=== PATIENT | male | born 1950 | race Caucasian/White ===

== ENCOUNTER 2018-06-14 18:18 | Inpatient (IN) | payer MEDICARE, OTHER ==
[~2018-06-14] VITALS: Ht 177.8 cm; Wt 107.8 kg
[2018-06-14 18:57] LABS: BASO % 0.2 % (0.0-1.0); EOS # 0.2 10^3/uL (0.0-0.50); EOS % 2.1 % (0.0-3.0); HEMATOCRIT 30.6 % (42.0-52.0); HEMOGLOBIN 8.7 g/dl (13.5-17.5); LYMPH # 0.4 10^3/uL (1.5-4.5); LYMPH % 5.2 % (24.0-44.0); MEAN CORPUSCULAR HEMOGLOBIN 23.8 pg (27.0-33.0); MEAN CORPUSCULAR HGB CONC 28.4 g/dl (32.0-36.5); MEAN CORPUSCULAR VOLUME 83.8 fl (80.0-96.0); MONO # 0.8 10^3/uL (0.0-0.8); MONO % 10.2 % (0.0-5.0); NEUTROPHILS # 6.8 10^3/uL (1.8-7.7); NEUTROPHILS % 81.9 % (36.0-66.0); PLATELET COUNT, AUTOMATED 266 10^3/uL (150-450); RED BLOOD COUNT 3.65 10^6/uL (4.30-6.10); WHITE BLOOD COUNT 8.3 10^3/uL (4.0-10.0)
[2018-06-14] MEDS ORDERED: METO1TAB87 PO (19:09)
[2018-06-14] MEDS ORDERED: FURO40TA2 PO (19:09)
[2018-06-14] MEDS ORDERED: CLOP75TA2 PO (19:09)
[2018-06-14] MEDS ORDERED: TRAZ-160 PO (19:09)
[2018-06-14] MEDS ORDERED: GLIP10TA6 PO (19:09)
[2018-06-14] MEDS ORDERED: ZYLO300T6 PO (19:09)
[2018-06-14] MEDS ORDERED: ROSU40TA3 PO (19:09)
[2018-06-14] MEDS ORDERED: BUPR150T3 PO (19:09)
[2018-06-14] MEDS ORDERED: GABA-843 PO (19:09)
[2018-06-14] MEDS ORDERED: BASA100I SC ×2 (19:09→20:08)
[2018-06-14] MEDS ORDERED: SPIR-10 PO (19:09)
[2018-06-14] MEDS ORDERED: LOSA100T50 PO (19:09)
[2018-06-14] MEDS ORDERED: OMEP40CA2 PO (19:09)
[2018-06-14 19:14] LABS: INR 1.18; PROTHROMBIN TIME 15.2 SECONDS (12.1-14.4)
[2018-06-14 19:26] LABS: ALBUMIN 3.7 GM/DL (3.2-5.2); BILIRUBIN,DIRECT 0.2 MG/DL (0.0-0.2); BILIRUBIN,TOTAL 0.4 MG/DL (0.2-1.0); CALCIUM LEVEL 7.7 MG/DL (8.8-10.2); CREATININE FOR GFR 1.77 MG/DL (0.70-1.30); GLOMERULAR FILTRATION RATE 40.8 (>49); MB/CK RELATIVE INDEX 2.41 (< OR =4); POTASSIUM SERUM 4.5 MEQ/L (3.5-5.1); THYROID STIMULATING HORMONE 3.26 uIU/ML (0.358-3.740); THYROXINE (T4) 7.8 UG/DL (4.5-12.0); TOTAL PROTEIN 6.6 GM/DL (6.4-8.2); TROPONIN I 0.03 NG/ML (< 0.10)
[2018-06-14] MEDS ORDERED: FUROSEMIDE 100 MG/10 ML VIAL (J1940) IV ONE (19:30)
--- NOTE | 2018-06-14 19:31 | REP ---
Portable chest x-ray: Single view: History: Dyspnea and cough. No comparison study. Findings: The patient is status post prior median sternotomy. There appears to be an aortic valve replacement. There is a screw plate fixation device in the right clavicle. EKG electrodes are seen. Mildly prominent heart is noted. No infiltrate is seen. There is no evidence of pleural effusion or pulmonary edema. Pulmonary vasculature is cephalized. Impression: Cardiomegaly. Prior sternotomy and what appears to be aortic valve replacement. Pulmonary vascular cephalization. No evidence of infiltrate, pleural effusion, or pulmonary edema. Electronically Signed by Magno Roberts MD 06/14/2018 07:34 P
[2018-06-14] MEDS ORDERED: NEUR300C PO (20:07)
[2018-06-14] MEDS ORDERED: GLIP10TA18 PO (20:07)
[2018-06-14] MEDS ORDERED: HALO0.052 TOP (20:10)
[2018-06-14] MEDS ORDERED: FOLI1TAB11 PO (20:10)
[2018-06-14] MEDS: FOLIC ACID 1 MG TAB PO SCH (21:00)
[2018-06-14] MEDS ORDERED: GLUCAGON FOR INJ 1 MG VIAL (J1610) SC PRN (22:30)
[2018-06-14] MEDS ORDERED: GLUCOSE 4 GM CHEW TABLET PO PRN (22:30)
[2018-06-14] MEDS ORDERED: DEXTROSE 50% 50 ML SYRINGE IV PRN (22:30)
[2018-06-14] MEDS ORDERED: DOCUSATE SODIUM 100 MG CAP PO PRN (22:45)
[2018-06-14] MEDS: LEVEMIR (INSULIN DETEMIR) 1 UNITS/0.01ML SC SCH (23:30)
--- NOTE | 2018-06-14 23:57 | HPE ---
DATE OF ADMISSION: 06/14/2018 CHIEF COMPLAINT: Worsening dyspnea on exertion. HISTORY OF THE PRESENT ILLNESS: The patient is a 67-year-old male with significant past medical history of systolic congestive heart failure (CHF), coronary artery disease status post coronary artery bypass graft (CABG) times three, aortic valve repair, gout, diabetes with neuropathy. He presents to the emergency room with worsening dyspnea on exertion, decreased exercise tolerance, worsening lower extremity edema and orthopnea. He has been having these symptoms for the past 3-4 days. The patient states that he was taken off his diuretics by his canoe maker, Dr. Guerra, about 3 weeks ago because of worsening renal function. He was subsequently started back at a lower dose when he became fluid overloaded. He states that he was on 40 twice a day, then subsequently was on 40, 20 interchangeably on different days. He states he continued to become progressively dyspneic on exertion, unable to walk a few feet before he is short of breath. He denied any chest pain. He denied any abdominal pain. He has chronic constipation. He denies any urinary symptoms. The patient states he recently had an echocardiogram with Dr. Guerra, which illustrated that his ejection fraction (EF) had decreased to around 19%. He was being told about possible automatic implantable cardioverter defibrillator (AICD), as well as cardiac catheterization. However, it was found t hat he was anemic, and he is currently in the process of getting worked up. He sent in his stool for occult blood. His hemoglobin today is 8.7. PAST MEDICAL HISTORY: See history of the present illness. PAST SURGICAL HISTORY: He has had shoulder surgery, parotid tumor removal, hernia repair, CABG, and aortic valve replacement. HOME MEDICATIONS: Include: - Lasix 40 mg - glipizide - allopurinol - Basaglar - bupropion - Plavix - folic acid - gabapentin - metoprolol - omeprazole - Crestor - spironolactone - trazodone SOCIAL HISTORY: He is a former smoker. Denies alcohol or illicit drug use. FAMILY HISTORY: Heart disease. REVIEW OF SYSTEMS: A 12-point review of systems was completed, all of which were negative except those listed in the history of the present illness. VITAL SIGNS ON ADMISSION: Temperature 97, pulse of 75, respirations are 28, saturating at 93% on room air. Blood pressure 133/56. PHYSICAL EXAM: General: He is well nourished, in no apparent distress. Head is normocephalic, atraumatic Eyes: Extraocular movements are intact. Pupils equal, round, reactive to light. Neck is supple. No jugular venous pressure (JVP). Lungs: Clear to auscultation. No crackles, wheezes, rales, or rhonchi. Cardiovascular: Regular rate and rhythm. Normal S1, S2. No murmurs, gallops, or rubs. Abdomen: Soft, nontender, nondistended. Positive bowel sounds. No rebound, no guarding. Extremities: 2+ pitting edema. No calf tenderness. Skin: Intact. No rashes, lesions, or breakdown. Neurological: Alert and oriented times three. No focal deficits. LABS AND IMAGING: Done in the ER. WBC of 8.3, hemoglobin and hematocrit of 8.7 over 30, MCV of 83, platelets of 266. Baseline hemoglobin unknown. Coagulation studies (coags): INR 1.18. Chemistry shows a BUN and creatinine of 36 over 1.77, baseline unknown. BNP of 5000. Troponins are negative. Potassium of 4.5. Chest x-ray shows cardiomegaly, pulmonary vascular cephalization. ASSESSMENT AND PLAN: Acute on chronic systolic congestive heart failure secondary to possibly medication noncompliance changes but would rule out acute coronary syndrome (ACS) with serial troponins, serial EKGs. Will get an echo. Will send a TSH. Will diurese with Lasix 40 mg twice a day for now and pay close attention to the renal function. Strict intake and output, daily weights, elevate the head of the bed, oxygen as needed. For his normocytic anemia, will send stool for occult blood. Will send iron panel, folate and B12. For his worsening renal function, as per the patient, unknown what his baseline creatinine is, possibly acute kidney injury (KAILEY) on chronic kidney disease. Will send urine sodium, urine potassium, urine chloride. Will get US renal. Will monitor closely while patient on diuretics. However, at this point in time, he seems to be fluid overloaded. Unclear if this is some sort of cardiorenal syndrome. For gout, continue allopurinol. Coronary artery disease. Status post CABG. Continue Plavix and beta jay. Aortic valve replacement. This appears to be stable. Will get an echocardiogram. Mood disorder. Continue bupropion. Supportive: Deep vein thrombosis (DVT) prophylaxis. Sequential compression devices in the setting of recently discovered anemia. Gastrointestinal (GI) prophylaxis not indicated. Diabetes. Continue his basal bolus insulin as well as Neurontin for neuropathy. Diet: Diabetic, cardiac diet with fluid restriction 1.8 liters per day. MTDD
[2018-06-14] MEDS: METOPROLOL TART 12.5 MG PER 1/2 TAB PO SCH (23:58)
[2018-06-15 06:44] VITALS: BP 149/73
[2018-06-15 07:10] LABS: HEMATOCRIT 28.1 % (42.0-52.0); HEMOGLOBIN 7.9 g/dl (13.5-17.5); MEAN CORPUSCULAR HEMOGLOBIN 23.4 pg (27.0-33.0); MEAN CORPUSCULAR HGB CONC 28.1 g/dl (32.0-36.5); MEAN CORPUSCULAR VOLUME 83.4 fl (80.0-96.0); PLATELET COUNT, AUTOMATED 243 10^3/uL (150-450); RED BLOOD COUNT 3.37 10^6/uL (4.30-6.10); WHITE BLOOD COUNT 7.5 10^3/uL (4.0-10.0)
[2018-06-15] MEDS: HumaLOG INSULIN (NovoLOG) PER UNIT SC SCH ×3 (07:30→18:01)
[2018-06-15 08:00] VITALS: BP 148/85
--- NOTE | 2018-06-15 08:32 | REP ---
Urinary tract sonography: History: Worsening creatinine. Renal insufficiency. Findings: Scanning at the level of the urinary bladder shows smooth bladder smith. There is mild diffuse ascites noted in the right and left lower abdomen. Renal cortical echogenicity pattern is increased bilaterally consistent with chronic medical renal disease. There is no evidence of hydronephrosis on either side. There is a cyst in the upper pole of the right kidney measuring 1.8 cm in greatest diameter. A lower pole cyst is seen in the periphery of the right old kidney as well measuring 1.5 cm. No mass lesion is seen on either side. Right renal dimensions are 11.4 x 6.2 x 6.5 cm. Left kidney measures 11.7 x 5.8 x 5.8 cm. Impression: 1. Increased renal cortical echogenicity pattern consistent with chronic medical renal disease. 2. No evidence of hydronephrosis. 3. There are two tiny cortical cysts right kidney. 4. Ascites. Electronically Signed by Magno Roberts MD 06/15/2018 08:23 A
[2018-06-15 09:09] LABS: BLOOD UREA NITROGEN 33 MG/DL (7-18); CARBON DIOXIDE LEVEL 25 MEQ/L (21-32); CHLORIDE LEVEL 110 MEQ/L (98-107); CREATININE FOR GFR 1.62 MG/DL (0.70-1.30); FERRITIN 8 NG/ML (26-388); GLOMERULAR FILTRATION RATE 45.2 (>49); GLUCOSE, FASTING 70 MG/DL (70-100); IRON (FE) 15 UG/DL (65-175); PERCENT SATURATION 3.3 % (19.7-50.0); POTASSIUM SERUM 4.2 MEQ/L (3.5-5.1); SODIUM LEVEL 144 MEQ/L (136-145); TOTAL IRON BINDING CAPACITY 452 UG/DL (250-450); TROPONIN I 0.03 NG/ML (< 0.10)
[2018-06-15] MEDS: buPROPion **XL** TABLET 150MG (WELLBUTRIN XL) PO SCH (09:25)
[2018-06-15] MEDS: ALLOPURINOL 300 MG TAB PO SCH (09:25)
[2018-06-15] MEDS: ROSUVASTATIN 10 MG TAB (CRESTOR) PO SCH (09:25)
[2018-06-15] MEDS: OMEPRAZOLE 20 MG CAP PO SCH ×2 (09:26→21:41)
[2018-06-15] MEDS: SPIRONOLACTONE 12.5MG PER 1/2 TABLET PO SCH (09:26)
[2018-06-15] MEDS: METOPROLOL TART 12.5 MG PER 1/2 TAB PO SCH ×2 (09:26→21:41)
[2018-06-15] MEDS: CLOPIDOGREL 75 MG TAB PO SCH (09:26)
[2018-06-15] MEDS: GABAPENTIN 300 MG CAP PO SCH ×2 (09:26→21:38)
[2018-06-15] MEDS: LEVEMIR (INSULIN DETEMIR) 1 UNITS/0.01ML SC SCH ×2 (09:27→21:42)
[2018-06-15] MEDS: FUROSEMIDE 40 MG/4 ML VIAL (J1940) IV SCH ×2 (09:27→17:09)
[2018-06-15] MEDS ORDERED: SLF 3 ML SYR IV PRN (10:45)
--- NOTE | 2018-06-15 11:41 | ECGEPIP ---
Stationary ECG Study [facility] - ED Test Date: 2018-06-14 Pat Name: DONNA MELCHOR Department: Room: [place] [address] Gender: M Funding Coordinator: gt : 1950 Requested By: Roseanne Guerra Order Number: [id number] Reading MD: Jania Mederos Measurements Intervals [place] Rate: 70 P: 75 VT: 195 QRS: -28 QRSD: 128 T: 98 QT: 411 QTc: 446 Interpretive Statements SINUS RHYTHM LEFT BUNDLE BRANCH BLOCK NO PRIOR FOR COMPARISON Electronically Signed On 06-15-2018 11:41:11 EST by Jania Mederos
[2018-06-15 11:49] LABS: FOLATE > 24.0 NG/ML (>5.4); VITAMIN B12 LEVEL 800 PG/ML (247-911)
[2018-06-15 12:00] VITALS: BP 127/67
[2018-06-15] MEDS ORDERED: HALOBETASOL PROPION 0.05% OINT 15 GM TOP PRN (13:15)
[2018-06-15] MEDS: SLF 3 ML SYR IV SCH ×2 (13:30→21:38)
[2018-06-15 13:46] LABS: HEMATOCRIT 29.2 % (42.0-52.0); HEMOGLOBIN 8.3 g/dl (13.5-17.5)
--- NOTE | 2018-06-15 15:07 | REP ---
CT chest without contrast: History: Volume overload. No comparison chest CT. CT findings: Preliminary digital scout sniper radiograph demonstrates median sternotomy wires. Mitral annular calcification is observed. The patient is status post aortic valve replacement. There are quite small bilateral pleural effusions, right greater than left. No pericardial effusion is seen. Four-chamber cardiomegaly is observed, however. There is minimal upper abdominal ascites visible. There are multiple small mediastinal lymph nodes in the aortopulmonary window region and pretracheal region. The largest of these measures 16 x 17 mm. This is in the pretracheal region. In the aortopulmonary window region, there is a lymph node measuring 11 x 19 mm. No axillary adenopathy is appreciated. There are two or three borderline portocaval lymph nodes in the upper abdomen. There is a cyst in the upper pole of the left kidney. There are one or two epicardial fat lymph nodes. The largest of these measures 9 x 11 mm. There is a 4 mm nodule without calcification in the right lower lobe on page 75 of 103 in series 204 of today's study. There is a second 3 mm noncalcified nodule in the left lower lobe on the same page of today's exam. No other significant pulmonary nodule is seen. No infiltrate is observed. Impression: Cardiomegaly and small bilateral pleural effusions, right larger than left. Status post aortic valve replacement. There are borderline mediastinal and upper abdominal lymph nodes. Mild upper abdominal ascites. There are two small subcentimeter noncalcified pulmonary nodules. Consider follow-up. Electronically Signed by Magno Roberts MD 06/15/2018 03:57 P
--- NOTE | 2018-06-15 15:10 | REP ---
CT abdomen and pelvis without IV or oral contrast: History: Ascites. No comparison CT study. Ascites visible on yesterday's urinary tract sonography. CT findings: There is mild diffuse abdominal ascites along the right pericolic gutter and right flank as well as in the pelvic reflections. There are calcified gallstones in a normal sized gallbladder. No focal hepatic lesion or splenic lesion is seen. Neither of these organs is enlarged. Pancreas is unremarkable. No adrenal lesion is seen. There are bilateral renal cortical cysts including a small hyperdense cyst at the lower pole on the right which measures 1.5 cm. The largest cyst is in the upper pole on the left measuring 3.0 cm. No retroperitoneal mass or adenopathy is observed. There is fairly prominent vascular calcification. Small and large intestinal bowel loops are unremarkable. There is some vas deferens calcification and prostate calcification. Urinary bladder is unremarkable. No abdominal wall defect is seen. No bony destructive lesion is appreciated. Impression: Mild diffuse abdominal ascites. Bilateral renal cysts. Cholelithiasis. Vascular calcification. Electronically Signed by Magno Roberts MD 06/15/2018 03:59 P
--- NOTE | 2018-06-15 16:38 | IPNPDOC ---
Subjective Date Seen The patient was seen on 06/15/18. Subjective Chief Complaint/HPI Patient seen and examined at the bedside. Reports that his respiratory status and lower extremity edema is improving since admission. Objective Physical Examination General Exam: Positive: Alert, Cooperative, No Acute Distress ENT Exam: Positive: Mucous membr. moist/pink Chest Exam: Positive: Rales (faint bibasilar crackles noted auscultation. Limited due to body habitus), Diminished Heart Exam: Positive: Rate Normal, Normal S1, Normal S2 Abdomen Exam: Positive: Soft, Other (slightly distended); Negative: Tenderness Extremity Exam: Positive: Swelling (3+ pitting edema in the lower extremities bilaterally); Negative: Tenderness Psych Exam: Positive: Oriented x 3 Assessment /Plan Plan/VTE VTE Prophylaxis Ordered?: Yes Plan Decompensated Systolic CHF Cont IV Diuretic therapy as ordered Monitor daily weights Monitor input and output We will continue to actively diuresis the patient with IV Lasix and by mouth Aldactone to improve his respiratory status 2-D echocardiogram ordered for follow-up of the patient's underlying systolic/diastolic function Normocytic anemia Stool occult study sent Iron studies noted We will transfuse the patient as indicated for hemoglobin less than 8.0 Possible acute kidney injury versus chronic kidney disease We do not have baseline lab work for the patient His serum creatinine has improved from 1.77 to 1.62 this morning with diuresis Renal ultrasound with no acute findings Outpatient records ordered to be obtained We will continue to monitor Hx of CAD s/p CABG Cont Plavix, BB History of aortic valve replacement We will follow up on echocardiogram ordered here Gout Continue allopurinol Peripheral neuropathy Continue gabapentin Dyslipidemia Continue statin GERD Continue PPI Diabetes mellitus Continue Levemir, insulin sliding scale DVT Prophylaxis SCDs/TEDs VS, I&O, 24H, Fishbone Vital Signs/I&O Vital Signs Date Time Temp Pulse Resp B/P (MAP) Pulse Ox O2 Delivery O2 Flow Rate FiO2 06/15/18 12:00 96.8 88 16 127/67 (87) 99 06/14/18 18:42 Room Air I&O- Last 24 Hours up to 6 AM 06/15/18 06:00 Output Total 1200 ml Balance -1200 ml Laboratory Data 24H LABS Laboratory Tests 2 06/14/18 18:45: Immature Granulocyte % (Auto) 0.4, White Blood Count 8.3, Red Blood Count 3.65L, Hemoglobin 8.7L, Hematocrit 30.6L, Mean Corpuscular Volume 83.8, Mean Corpuscular Hemoglobin 23.8L, Mean Corpuscular Hemoglobin Concent 28.4L, Red Cell Distribution Width 16.4H, Platelet Count 266, Neutrophils (%) (Auto) 81.9H, Lymphocytes (%) (Auto) 5.2L, Monocytes (%) (Auto) 10.2H, Eosinophils (%) (Auto) 2.1, Basophils (%) (Auto) 0.2, Neutrophils # (Auto) 6.8, Lymphocytes # (Auto) 0.4L, Monocytes # (Auto) 0.8, Eosinophils # (Auto) 0.2, Basophils # (Auto) 0.0, Nucleated Red Blood Cells % (auto) 0.0, Prothrombin Time 15.2H, Prothromb Time International Ratio 1.18, Anion Gap 11, Glomerular Filtration Rate 40.8L, Calcium Level 7.7L, Aspartate Amino Transf (AST/SGOT) 17, Alanine Aminotransfer ase (ALT/SGPT) 21, Alkaline Phosphatase 94, Total Bilirubin 0.4, Direct Bilirubin 0.2, Total Creatine Kinase 170, Creatine Kinase MB 4.0H, Creatine Kinase MB Relative Index 2.41, Troponin I 0.03, MS-Vng-F-Type Natriuretic Peptide 5095H, Total Protein 6.6, Albumin 3.7, Albumin/Globulin Ratio 1.28, Th yroid Stimulating Hormone (TSH) 3.260, Thyroxine (T4) 7.8 06/14/18 22:30: Lab Scanned Report LAB OTHER 06/14/18 23:02: Bedside Glucose (Misc Panel) 47L 06/14/18 23:48: Bedside Glucose (Misc Panel) 88 06/15/18 01:21: Troponin I 0.03 06/15/18 05:38: Bedside Glucose (Misc Panel) 86 06/15/18 06:53: Troponin I 0.03, Nucleated Red Blood Cells % (auto) 0.0, Anion Gap 9, Glomerular Filtration Rate 45.2L, Blood Urea Nitrogen 33H, Creatinine 1.62H, Sodium Level 144, Potassium Level 4.2, Chloride Level 110H, Carbon Dioxide Level 25, Calcium Level 8.0L, Iron Level 15L, Total Iron Binding Capacity 452H, Transferrin % Saturation 3.3L, Ferritin 8L, Vitamin B12 Level 800, Folate > 24.0 06/15/18 11:32: Bedside Glucose (Misc Panel) 95 06/15/18 16:27: CBC/BMP Laboratory Tests 06/14/18 18:45 Red Blood Count 3.65 L, Mean Corpuscular Volume 83.8, Mean Corpuscular Hemoglobin 23.8 L, Mean Corpuscular Hemoglobin Concent 28.4 L, Red Cell Distribution Width 16.4 H, Neutrophils (%) (Auto) 81.9 H, Lymphocytes (%) (Auto) 5.2 L, Monocytes (%) (Auto) 10.2 H, Eosinophils (%) (Auto) 2.1, Basophils (%) (Auto) 0.2, Neutrophils # (Auto) 6.8, Lymphocytes # (Auto) 0.4 L, Monocytes # (Auto) 0.8, Eosinophils # (Auto) 0.2, Basophils # (Auto) 0.0 06/15/18 06:53 Red Blood Count 3.37 L, Mean Corpuscular Volume 83.4, Mean Corpuscular Hemoglobin 23.4 L, Mean Corpuscular Hemoglobin Concent 28.1 L, Red Cell Distribution Width 16.5 H, Calcium Level 8.0 L 06/15/18 13:28 NERIS KELLEY MD Jun 15, 2018 16:38
[2018-06-15 16:49] LABS: POTASSIUM RANDOM URINE 35.4 MEQ/L
[2018-06-15 16:52] LABS: APPEARANCE, URINE CLEAR (CLEAR); BACTERIA, URINE AUTO 1+ (NEGATIVE); BILIRUBIN, URINE AUTO NEGATIVE (NEGATIVE); BLOOD, URINE BLOOD NEGATIVE (NEGATIVE); COLOR, URINE YELLOW (YELLOW); GLUCOSE, URINE (UA) AUTO NEGATIVE (NEGATIVE); KETONE, URINE AUTO NEGATIVE (NEGATIVE); LEUKOCYTE ESTERASE, URINE AUTO NEGATIVE (NEGATIVE); NITRITE, URINE AUTO NEGATIVE (NEGATIVE); PROTEIN, URINE AUTO NEGATIVE (NEGATIVE); RBC, URINE AUTO 1 /HPF (0-3); SPECIFIC GRAVITY URINE AUTO 1.009 (1.002-1.035); SQUAMOUS EPITHELIAL CELL UR AU 0 /HPF (0-6); UROBILINOGEN, URINE AUTO 0.2 mg/dL (0.0-2.0); WBC, URINE AUTO 1 /HPF (0-3)
[2018-06-15 20:00] VITALS: BP 129/66
[2018-06-15 20:41] VITALS: BP 132/62
[2018-06-15] MEDS: FOLIC ACID 1 MG TAB PO SCH (21:37)
[2018-06-15] MEDS: traZODone 25MG PER 1/2 TABLET PO SCH (21:38)
[2018-06-16] MEDS: SLF 3 ML SYR IV SCH ×3 (05:06→21:30)
[2018-06-16 06:00] VITALS: BP 111/58
[2018-06-16 06:31] LABS: HEMATOCRIT 27.4 % (42.0-52.0); HEMOGLOBIN 7.7 g/dl (13.5-17.5); MEAN CORPUSCULAR HGB CONC 28.1 g/dl (32.0-36.5); MEAN CORPUSCULAR VOLUME 81.8 fl (80.0-96.0); PLATELET COUNT, AUTOMATED 239 10^3/uL (150-450); RED BLOOD COUNT 3.35 10^6/uL (4.30-6.10); WHITE BLOOD COUNT 7.3 10^3/uL (4.0-10.0)
[2018-06-16 06:50] LABS: CALCIUM LEVEL 8.4 MG/DL (8.8-10.2); CREATININE FOR GFR 1.6 MG/DL (0.70-1.30); GLOMERULAR FILTRATION RATE 45.9 (>49); POTASSIUM SERUM 4.8 MEQ/L (3.5-5.1)
[2018-06-16] MEDS: HumaLOG INSULIN (NovoLOG) PER UNIT SC SCH ×3 (07:30→18:53)
--- NOTE | 2018-06-16 07:51 | ECGEPIP ---
Stationary ECG Study [facility] Test Date: 2018-06-15 Pat Name: DONNA MELCHOR Department: Room: H6632-41 Gender: M Re Recording Mixer: LUZ ELENA : 1950 Requested By: DONTE THURSDAY Order Number: [id number] Reading MD: Wero Marshall Measurements Intervals [place] Rate: 57 P: 72 ID: [id number] QRS: -28 QRSD: 130 T: 121 QT: 465 QTc: 454 Interpretive Statements SINUS BRADYCARDIA Left bundle branch block Rate decreased from tracing done 06-14-18 Electronically Signed On 06-16-2018 7:50:57 EST by Wero Marshall
[2018-06-16] MEDS: GABAPENTIN 300 MG CAP PO SCH ×2 (08:20→21:29)
[2018-06-16] MEDS: ALLOPURINOL 300 MG TAB PO SCH (08:20)
[2018-06-16] MEDS: CLOPIDOGREL 75 MG TAB PO SCH (08:20)
[2018-06-16] MEDS: ROSUVASTATIN 10 MG TAB (CRESTOR) PO SCH (08:20)
[2018-06-16] MEDS: FERROUS SULFATE 325MG TAB PO SCH ×2 (08:21→21:30)
[2018-06-16] MEDS: OMEPRAZOLE 20 MG CAP PO SCH ×2 (08:21→21:30)
[2018-06-16] MEDS: METOPROLOL TART 12.5 MG PER 1/2 TAB PO SCH ×2 (08:21→21:29)
[2018-06-16] MEDS: buPROPion **XL** TABLET 150MG (WELLBUTRIN XL) PO SCH (08:21)
[2018-06-16] MEDS: FUROSEMIDE 40 MG/4 ML VIAL (J1940) IV SCH ×2 (08:22→18:52)
[2018-06-16] MEDS: LEVEMIR (INSULIN DETEMIR) 1 UNITS/0.01ML SC SCH ×2 (08:24→21:29)
[2018-06-16] MEDS ORDERED: PREVNAR 13 VACCINE SYRINGE (CPT CODE:90670) IM ONE (09:00)
--- NOTE | 2018-06-16 09:13 | ECHO ---
DATE OF STUDY: 06/15/2018 REFERRING PHYSICIAN: Dr. Vidal INDICATION: Congestive heart failure. HEIGHT: 178 cm WEIGHT: 110 kg DIMENSIONS: IVS: 1.1 LV: 6.4 LVPW: 1.1 LA: 5.2 Aorta: 2.9 Mitral E wave velocity: 140 A wave: 38 Left atrial volume index: 36 IVC: 2.0 FINDINGS: The study is of rather limited technical quality with very difficult visualization. The left ventricle is moderately dilated. There is septal wall motion abnormality, possibly related to prior open heart surgery. There appears to be severe hypokinesis or akinesis of apex, distal septum and distal anterior wall. The remaining LV segments appear to be at least mildly hypokinetic. Overall, I estimate approximately moderate left ventricular systolic dysfunction, but the visualization was very limited and I cannot provide accurate assessment. The right ventricle does not appear grossly enlarged. The left atrium is moderately enlarged. The right atrium is probably normal size. There is a bioprosthesis in the aortic position that was poorly visualized and I cannot comment on its structure. The mitral valve exhibits mild degenerative abnormalities, but mobility of leaflets is preserved. The tricuspid and pulmonic valves appear normal. No pericardial effusion is noted. The inferior vena cava is dilated, but there is some collapse with respiration indicative of likely mildly elevated central venous pressure. The aortic root is normal. The aortic arch and abdominal aorta were poorly seen. Doppler interrogation of aortic prosthesis reveals no insufficiency and no significant stenosis (mean gradient is 12 mmHg). Calculated aortic valve area is 2.0 cm2. There is mild mitral insufficiency and mild tricuspid insufficiency. The calculated pulmonary artery pressure is at minimum in the high 40s, corresponding to moderate pulmonary hypertension. The pulmonic valve is functionally competent. Mitral inflow pattern reveals likely Grade 2 diastolic dysfunction. Unfortunately, tissue Doppler velocities of mitral annulus were not measured. CONCLUSIONS: 1. Study is of limited technical quality. 2. Dilated left ventricle with segmental wall motion abnormalities and overall approximately moderate left ventricular systolic dysfunction. Likely Grade 2 diastolic dysfunction. 3. Bioprosthetic valve in aortic position with normal function. 4. No further hemodynamically significant valvular disease. 5. High central venous pressure and at least moderate pulmonary hypertension. COMMENT: Subacute bacterial endocarditis (SBE) prophylaxis is indicated. The study is consistent with likely ischemic cardiomyopathy.
[2018-06-16] MEDS: SPIRONOLACTONE 12.5MG PER 1/2 TABLET PO SCH (12:54)
[2018-06-16] MEDS: SENOKOT S TAB PO SCH ×2 (13:02→21:30)
[2018-06-16 14:00] VITALS: BP 145/66
--- NOTE | 2018-06-16 14:32 | IPNPDOC ---
Subjective Date Seen The patient was seen on 06/16/18. Subjective Chief Complaint/HPI Patient seen and examined at bedside. Reports that he is feeling better overall and that his shortness of breath is improving. Objective Physical Examination General Exam: Positive: Alert, Cooperative, No Acute Distress ENT Exam: Positive: Mucous membr. moist/pink Chest Exam: Positive: Rales (faint bibasilar crackles noted auscultation. Limited due to body habitus), Diminished Heart Exam: Positive: Rate Normal, Normal S1, Normal S2 Abdomen Exam: Positive: Soft, Other (slightly distended); Negative: Tenderness Extremity Exam: Positive: Swelling (3+ pitting edema in the lower extremities bilaterally); Negative: Tenderness Psych Exam: Positive: Oriented x 3 Assessment /Plan Plan/VTE VTE Prophylaxis Ordered?: Yes Plan Decompensated Systolic CHF Cont IV Diuretic therapy as ordered Monitor daily weights Monitor input and output 2-D echocardiogram notable for moderate LV systolic dysfunction and Grade 2 DD The patient has lost 2.7 KG's since admission and has a net negative of over 4 L. We will continue to actively diuresis the patient with IV Lasix and by mouth Aldactone to improve his respiratory status Normocytic anemia Stool occult study sent Iron studies noted--patient started on iron supplementation Hgb noted to be less than 8 this AM--we will transfuse the patient 1 Unit Chronic Kidney Disease Stage III Baseline Serum Cr ~1.6 as per outpatient records from PCP Serum creatinine 1.6 this morning with diuresis Renal ultrasound with no acute findings We will continue to monitor Hx of CAD s/p CABG Cont Plavix, BB History of aortic valve replacement Follow up outpatient Gout Continue allopurinol Peripheral neuropathy Continue gabapentin Dyslipidemia Continue statin GERD Continue PPI Diabetes mellitus Continue Levemir, insulin sliding scale DVT Prophylaxis SCDs/TEDs VS, I&O, 24H, Fishbone Vital Signs/I&O Vital Signs Date Time Temp Pulse Resp B/P (MAP) Pulse Ox O2 Delivery O2 Flow Rate FiO2 06/16/18 08:21 72 118/60 06/16/18 06:00 98.0 18 94 06/14/18 18:42 Room Air I&O- Last 24 Hours up to 6 AM 06/16/18 06:00 Intake Total 1300 ml Output Total 3325 ml Balance -2025 ml Laboratory Data 24H LABS Laboratory Tests 2 06/15/18 16:27: Urine Appearance CLEAR, Urine Color YELLOW, Urine pH 5.0, Urine Specific [place] 1.009, Urine Protein NEGATIVE, Urine Glucose (UA) NEGATIVE, Urine Ketones N EGATIVE, Urine Urobilinogen 0.2, Urine Bilirubin NEGATIVE, Urine Leukocyte Esterase NEGATIVE, Urine Blood NEGATIVE, Urine Nitrite NEGATIVE, Urine WBC (Auto) 1, Urine RBC (Auto) 1, Urine Hyaline Casts (Auto) 4, Urine Bacteria (Auto) 1+H, Urine Squamous Epithelial Cells 0, Urine Sperm (Auto) , Urine Random Potassium 35.4, Urine Random Chloride 96 06/15/18 16:33: Bedside Glucose (Misc Panel) 112 06/16/18 06:14: Nucleated Red Blood Cells % (auto) 0.0, Anion Gap 6L, Glomerular Filtration Rate 45.9L, Blood Urea Nitrogen 30H, Creatinine 1.60H, Sodium Level 143, Potassium Level 4.8, Chloride Level 109H, Carbon Dioxide Level 28, Calcium Level 8.4L CBC/BMP Laboratory Tests 06/16/18 06:14 Red Blood Count 3.35 L, Mean Corpuscular Volume 81.8, Mean Corpuscular Hemoglobin 23.0 L, Mean Corpuscular Hemoglobin Concent 28.1 L, Red Cell Distribution Width 16.4 H, Calcium Level 8.4 L NERIS KELLEY MD Jun 16, 2018 14:32
[2018-06-16] MEDS: traZODone 25MG PER 1/2 TABLET PO SCH (21:29)
[2018-06-16] MEDS: FOLIC ACID 1 MG TAB PO SCH (21:30)
[2018-06-16 22:00] VITALS: BP 150/79
[2018-06-16 22:46] LABS: TOTAL VOLUME, URINE 2500 ML
[2018-06-16 23:08] LABS: SODIUM 24 HOUR URINE 217 MEQ/24HR (40-220); SODIUM, URINE 87 MEQ/L
[2018-06-17] MEDS: SLF 3 ML SYR IV SCH ×3 (05:33→21:58)
[2018-06-17 06:00] VITALS: BP 113/58
[2018-06-17 07:08] LABS: HEMATOCRIT 29.6 % (42.0-52.0); HEMOGLOBIN 8.6 g/dl (13.5-17.5); MEAN CORPUSCULAR HEMOGLOBIN 23.6 pg (27.0-33.0); MEAN CORPUSCULAR HGB CONC 29.1 g/dl (32.0-36.5); MEAN CORPUSCULAR VOLUME 81.1 fl (80.0-96.0); PLATELET COUNT, AUTOMATED 236 10^3/uL (150-450); RED BLOOD COUNT 3.65 10^6/uL (4.30-6.10); WHITE BLOOD COUNT 8.7 10^3/uL (4.0-10.0)
[2018-06-17] MEDS: HumaLOG INSULIN (NovoLOG) PER UNIT SC SCH ×3 (07:30→17:18)
[2018-06-17 07:40] LABS: CALCIUM LEVEL 8.2 MG/DL (8.8-10.2); CREATININE FOR GFR 1.47 MG/DL (0.70-1.30); GLOMERULAR FILTRATION RATE 50.6 (>49)
[2018-06-17 08:13] VITALS: BP 148/80
[2018-06-17] MEDS: SENOKOT S TAB PO SCH ×2 (09:00→21:57)
[2018-06-17] MEDS: FUROSEMIDE 40 MG/4 ML VIAL (J1940) IV SCH ×2 (09:14→17:17)
[2018-06-17] MEDS: LEVEMIR (INSULIN DETEMIR) 1 UNITS/0.01ML SC SCH ×2 (09:15→21:58)
[2018-06-17] MEDS: ROSUVASTATIN 10 MG TAB (CRESTOR) PO SCH (09:16)
[2018-06-17] MEDS: OMEPRAZOLE 20 MG CAP PO SCH ×2 (09:16→21:57)
[2018-06-17] MEDS: SPIRONOLACTONE 12.5MG PER 1/2 TABLET PO SCH (09:16)
[2018-06-17] MEDS: CLOPIDOGREL 75 MG TAB PO SCH (09:17)
[2018-06-17] MEDS: FERROUS SULFATE 325MG TAB PO SCH ×2 (09:17→21:57)
[2018-06-17] MEDS: METOPROLOL TART 12.5 MG PER 1/2 TAB PO SCH ×2 (09:17→21:56)
[2018-06-17] MEDS: ALLOPURINOL 300 MG TAB PO SCH (09:18)
[2018-06-17] MEDS: GABAPENTIN 300 MG CAP PO SCH ×2 (09:18→21:57)
[2018-06-17] MEDS: buPROPion **XL** TABLET 150MG (WELLBUTRIN XL) PO SCH (09:18)
[2018-06-17 14:00] VITALS: BP 134/66
--- NOTE | 2018-06-17 14:01 | IPNPDOC ---
Subjective Date Seen The patient was seen on 06/17/18. Subjective Chief Complaint/HPI Patient seen and examined at the bedside. Reports improvement of his SOB. PT on board to work with the patient today. Objective Physical Examination General Exam: Positive: Alert, Cooperative, No Acute Distress ENT Exam: Positive: Mucous membr. moist/pink Chest Exam: Positive: Diminished Heart Exam: Positive: Rate Normal, Normal S1, Normal S2 Abdomen Exam: Positive: Soft, Other (slightly distended); Negative: Tenderness Extremity Exam: Positive: Swelling (2+ pitting edema in the lower extremities bilaterally); Negative: Tenderness Psych Exam: Positive: Oriented x 3 Assessment /Plan Plan/VTE VTE Prophylaxis Ordered?: Yes Plan Decompensated Systolic CHF Cont IV Diuretic therapy as ordered Monitor daily weights Monitor input and output 2-D echocardiogram notable for moderate LV systolic dysfunction and Grade 2 DD The patient has lost 2.7 KG's since admission and has a net negative of ~ 4 L. We will continue to actively diuresis the patient with IV Lasix and by mouth Aldactone to improve his respiratory status Case discussed with Dr. Guerra of Cardiology who follows the patient as an outpatient--We will cont to volume optimize the patient and have him f/u as an outpatient for AICD placement. Normocytic anemia Stool occult study negative Iron studies noted--patient started on iron supplementation s/p 1 Unit of PRBC transfusion Outpatient Colonoscopy done last year--records reviewed Chronic Kidney Disease Stage III Baseline Serum Cr ~1.6 as per outpatient records from PCP Serum creatinine improving with diuresis Renal ultrasound with no acute findings We will continue to monitor Hx of CAD s/p CABG Cont Plavix, BB History of aortic valve replacement Follow up outpatient Gout Continue allopurinol Peripheral neuropathy Continue gabapentin Dyslipidemia Continue statin GERD Continue PPI Diabetes mellitus Continue Levemir, insulin sliding scale DVT Prophylaxis SCDs/TEDs VS, I&O, 24H, Fishbone Vital Signs/I&O Vital Signs Date Time Temp Pulse Resp B/P (MAP) Pulse Ox O2 Delivery O2 Flow Rate FiO2 06/17/18 09:17 62 148/80 06/17/18 08:13 98.1 20 96 06/14/18 18:42 Room Air I&O- Last 24 Hours up to 6 AM 06/17/18 06:00 Intake Total 1622 ml Output Total 2175 ml Balance -553 ml Laboratory Data 24H LABS Laboratory Tests 2 06/16/18 17:24: Bedside Glucose (Misc Panel) 123H 06/16/18 20:17: Bedside Glucose (Misc Panel) 207H 06/16/18 22:30: Urine Total Volume 2500, Urine Sodium 24 Hour 217 06/17/18 06:51: Nucleated Red Blood Cells % (auto) 0.2H, Anion Gap 6L, Glomerular Filtration Rate 50.6, Blood Urea Nitrogen 27H, Creatinine 1.47H, Sodium Level 143, Potassium Level 4.0, Chloride Level 109H, Carbon Dioxide Level 28, Calcium Level 8.2L 06/17/18 11:35: Bedside Glucose (Misc Panel) 140H CBC/BMP Laboratory Tests 06/17/18 06:51 Red Blood Count 3.65 L, Mean Corpuscular Volume 81.1, Mean Corpuscular Hemoglobin 23.6 L, Mean Corpuscular Hemoglobin Concent 29.1 L, Red Cell Distribution Width 16.1 H, Calcium Level 8.2 L Microbiology Microbiology 06/16/18 Stool Occult Blood (TALIA) - Final, Complete NERIS KELLEY MD Jun 17, 2018 14:01
[2018-06-17] MEDS: FOLIC ACID 1 MG TAB PO SCH (21:57)
[2018-06-17] MEDS: traZODone 25MG PER 1/2 TABLET PO SCH (21:57)
[2018-06-17 22:00] VITALS: BP 115/57
[2018-06-18] MEDS: SLF 3 ML SYR IV SCH (05:36)
[2018-06-18 06:00] VITALS: BP 128/60
[2018-06-18 06:26] LABS: HEMATOCRIT 31.4 % (42.0-52.0); HEMOGLOBIN 8.9 g/dl (13.5-17.5); MEAN CORPUSCULAR HEMOGLOBIN 23.6 pg (27.0-33.0); MEAN CORPUSCULAR HGB CONC 28.3 g/dl (32.0-36.5); MEAN CORPUSCULAR VOLUME 83.3 fl (80.0-96.0); PLATELET COUNT, AUTOMATED 235 10^3/uL (150-450); RED BLOOD COUNT 3.77 10^6/uL (4.30-6.10); WHITE BLOOD COUNT 9.1 10^3/uL (4.0-10.0)
[2018-06-18] MEDS: HumaLOG INSULIN (NovoLOG) PER UNIT SC SCH ×2 (06:43→12:05)
[2018-06-18 06:51] LABS: CALCIUM LEVEL 8.2 MG/DL (8.8-10.2); CREATININE FOR GFR 1.45 MG/DL (0.70-1.30); GLOMERULAR FILTRATION RATE 51.4 (>49)
[2018-06-18 07:44] VITALS: BP 124/69
[2018-06-18] MEDS: LEVEMIR (INSULIN DETEMIR) 1 UNITS/0.01ML SC SCH (08:45)
[2018-06-18] MEDS: SPIRONOLACTONE 12.5MG PER 1/2 TABLET PO SCH (08:45)
[2018-06-18] MEDS: FERROUS SULFATE 325MG TAB PO SCH (08:45)
[2018-06-18] MEDS: CLOPIDOGREL 75 MG TAB PO SCH (08:45)
[2018-06-18] MEDS: ALLOPURINOL 300 MG TAB PO SCH (08:45)
[2018-06-18 08:46] VITALS: BP 124/69
[2018-06-18] MEDS: METOPROLOL TART 12.5 MG PER 1/2 TAB PO SCH (08:46)
[2018-06-18] MEDS: buPROPion **XL** TABLET 150MG (WELLBUTRIN XL) PO SCH (08:46)
[2018-06-18] MEDS: GABAPENTIN 300 MG CAP PO SCH (08:46)
[2018-06-18] MEDS: OMEPRAZOLE 20 MG CAP PO SCH (08:46)
[2018-06-18] MEDS: ROSUVASTATIN 10 MG TAB (CRESTOR) PO SCH (08:46)
[2018-06-18] MEDS: SENOKOT S TAB PO SCH (08:47)
[2018-06-18] MEDS: FUROSEMIDE 40 MG/4 ML VIAL (J1940) IV SCH (08:47)
[2018-06-18] MEDS ORDERED: FURO40TA2 PO (09:42)
[2018-06-18] MEDS ORDERED: FERR1TAB8 PO (09:42)
--- NOTE | 2018-06-18 16:42 | DS.PDOC ---
Discharge Summary General Date of Admission Jun 14, 2018 at 22:30 Date of Discharge 06/18/18 Specialist/Consultants Involve: TUNDE WOODWARD MD Discharge Summary PROCEDURES PERFORMED DURING STAY: None. 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 HISTORY OF PRESENT ILLNESS: . 67-year-old male with past medical history of diastolic and systolic congestive heart failure, coronary artery disease status post bypass 3, aortic valve repair, gout, diabetes, chronic kidney disease stage III presented to the ER with a chief complaint of worsening dyspnea on exertion, decreased exercise tolerance, and worsening lower extremity edema with orthopnea. The patient states that his symptoms had worsened over the last 3-4 days. 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 Of note, the patient was noted to have a decreased ejection fraction of 19% and he was scheduled for a possible cardiac catheterization and AICD placement in the future. However, the patient was also found to be anemic, and was currently getting worked up. He was subsequently admitted to the hospitalist service for further evaluation and management. During hospitalization, the patient was started on IV diuretic therapy. He subsequently had a net negative balance of 7 L during this hospitalization, and his respiratory status has significantly improved. He states that he is able to lay flat at this time with no acute complaints. He was also seen by his herd tester Dr. Woodward during this hospitalization. As for the patient's anemia, he was transfused 1 unit of packed red blood cells. He had no episodes of overt bleeding, and a stool occult study was noted to be negative. Also, outpatient c olonoscopy records were obtained from the patient's recent colonoscopy which did not reveal any acute sources of bleed. The patient was noted to be iron deficient, and he has been started on supplemental therapy. The patient's renal function improved with diuresis and he is at his baseline. I did update Dr. Woodward about the patient's clinical condition, and he has stated that the patient can follow-up for a cardiac catheterization and AICD placement as an outpatient. 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 He has been seen and cleared by physical therapy. I've advised the patient to follow-up with his primary care physician and herd tester within 1 week. The patient has been advised to follow-up with a repeat CT scan of the chest as an outpatient for follow-up of two small subcentimeter noncalcified pulmonary nodules; risks, benefits, alternative options discussed at length with the patient. He has verbalized understanding of the same and notes that he will follow-up with his primary care physician for this. Lastly, he has been advised to return to the ER for any acute emergencies. DISCHARGE MEDICATIONS: Please see below. ALLERGIES: Please see below. PHYSICAL EXAMINATION ON DISCHARGE: VITAL SIGNS: Please see below. General Exam: Positive: Alert, Cooperative, No Acute Distress ENT Exam: Positive: Mucous membr. moist/pink Chest Exam: Positive: CTA B/L Heart Exam: Positive: Rate Normal, Normal S1, Normal S2 Abdomen Exam: Soft, NT/ND, BS+ Negative: Tenderness Extremity Exam: Positive: Swelling (Trace pitting edema in the lower extremities bilaterally--significantly improved); Negative: Tenderness Psych Exam: Positive: Oriented x 3 LABORATORY DATA: Please see below. IMAGING: Portable chest x-ray: Single view: History: Dyspnea and cough. No comparison study. Findings: The patient is status post prior median sternotomy. There appears to be an aortic valve replacement. There is a screw plate fixation device in the right clavicle. EKG electrodes are seen. Mildly prominent heart is noted. No infiltrate is seen. There is no evidence of pleural effusion or pulmonary ed edward. Pulmonary vasculature is cephalized. Impression: Cardiomegaly. Prior sternotomy and what appears to be aortic valve replacement. Pulmonary vascular cephalization. No evidence of infiltrate, pleural effusion, or pulmonary edema. Urinary tract sonography: History: Worsening creatinine. Renal insufficiency. Findings: Scanning at the level of the urinary bladder shows smooth bladder smith. There is mild diffuse ascites noted in the right and left lower abdomen. Renal cortical echogenicity pattern is increased bilaterally consistent with chronic medical renal disease. There is no evidence of hydronephrosis on either side. There is a cyst in the upper pole of the right kidney measuring 1.8 cm in greatest diameter. A lower pole cyst is seen in the periphery of the right old kidney as well measuring 1.5 cm. No mass lesion is seen on either side. Right renal dimensions are 11.4 x 6.2 x 6.5 cm. Left kidney measures 11.7 x 5.8 x 5.8 cm. Impression: 1. Increased renal cortical echogenicity pattern consistent with chronic medical renal disease. 2. No evidence of hydronephrosis. 3. There are two tiny cortical cysts right kidney. 4. Ascites. CT chest without contrast: History: Volume overload. No comparison chest CT. CT findings: Preliminary digital ordnance officer radiograph demonstrates median sternotomy wires. Mitral annular calcification is observed. The patient is status post aortic valve replacement. There are quite small bilateral pleural effusions, right greater than left. No pericardial effusion is seen. Four-chamber cardiomegaly is observed, however. There is minimal upper abdominal ascites visible. There are multiple small mediastinal lymph nodes in the aortopulmonary window region and pretracheal region. The largest of these measures 16 x 17 mm. This is in the pretracheal region. In the aortopulmonary window region, there is a lymph node measuring 11 x 19 mm. No axillary adenopathy is appreciated. There are two or three borderline portocaval lymph nodes in the upper abdomen. There is a cyst in the upper pole of the left kidney. There are one or two epicardial fat lymph nodes. The largest of these measures 9 x 11 mm. There is a 4 mm nodule without calcification in the right lower lobe on page 75 of 103 in series 204 of today's study. There is a second 3 mm noncalcified nodule in the left lower lobe on the same page of today's exam. No other significant pulmonary nodule is seen. No infiltrate is observed. Impression: Cardiomegaly and small bilateral pleural effusions, right larger than left. Status post aortic valve replacement. There are borderline mediastinal and upper abdominal lymph nodes. Mild upper abdominal ascites. There are two small subcentimeter noncalcified pulmonary nodules. Consider follow-up. CT abdomen and pelvis without IV or oral contrast: History: Ascites. No comparison CT study. Ascites visible on yesterday's urinary tract sonography. CT findings: There is mild diffuse abdominal ascites along the right pericolic gutter and right flank as well as in the pelvic reflections. There are calcified gallstones in a normal sized gallbladder. No focal hepatic lesion or splenic lesion is seen. Neither of these organs is enlarged. Pancreas is unremarkable. No adrenal lesion is seen. There are bilateral renal cortical cysts including a small hyperdense cyst at the lower pole on the right which measures 1.5 cm. The largest cyst is in the upper pole on the left measuring 3.0 cm. No retroperitoneal mass or adenopathy is observed. There is fairly prominent vascular calcification. Small and large intestinal bowel loops are unremarkable. There is some vas deferens calcification and prostate calcification. Urinary bladder is unremarkable. No abdominal wall defect is seen. No bony destructive lesion is appreciated. Impression: Mild diffuse abdominal ascites. Bilateral renal cysts. Cholelithiasis. Vascular calcification. PROGNOSIS: Fair ACTIVITY: As tolerated. DIET: 2 g low sodium diet, 1500 mL fluid or surgery diet DISCHARGE PLAN: DISPOSITION: Home, Self-Care. DISCHARGE INSTRUCTIONS: I've advised the patient to follow-up with his primary care physician and herd tester within 1 week. The patient has been advised to follow-up with a repeat CT scan of the chest as an outpatient for follow-up of two small subcentimeter noncalcified pulmonary nodules; risks, benefits, alternative options discussed at length with the patient. He has verbalized understanding of the same and states that he will follow-up with his primary care physician for this. Lastly, he has been advised to return to the ER for any acute emergencies. DISCHARGE CONDITION: Stable. TIME SPENT ON DISCHARGE: Greater than 30 minutes. Vital Signs/I&Os Vital Signs Date Time Temp Pulse Resp B/P (MAP) Pulse Ox O2 Delivery O2 Flow Rate FiO2 06/18/18 08:46 68 124/69 06/18/18 07:44 97.1 22 95 06/14/18 18:42 Room Air I&O- Last 24 Hours up to 6 AM 06/18/18 06:00 Intake Total 1380 ml Output Total 3750 ml Balance -2370 ml Laboratory Data Labs 24H Laboratory Tests 2 06/17/18 16:47: Bedside Glucose (Misc Panel) 171H 06/18/18 06:09: Nucleated Red Blood Cells % (auto) 0.0, Anion Gap 5L, Glomerular Filtration Rate 51.4, Blood Urea Nitrogen 23H, Creatinine 1.45H, Sodium Level 143, Potassium Level 4.0, Chloride Level 108H, Carbon Dioxide Level 30, Calcium Level 8.2L CBC/BMP Laboratory Tests 06/18/18 06:09 Red Blood Count 3.77 L, Mean Corpuscular Volume 83.3, Mean Corpuscular Hemoglobin 23.6 L, Mean Corpuscular Hemoglobin Concent 28.3 L, Red Cell Distribution Width 16.4 H, Calcium Level 8.2 L FSBS Laboratory Tests Test 06/17/18 16:47 Range/Units Bedside Glucose (Misc Panel) 171 80-115 MG/DL Microbiology Microbiology 06/16/18 Stool Occult Blood (TALIA) - Final, Complete Discharge Medications Scheduled (Basaglar Kwikpen) 100 Unit/Ml Inj, 50 UNITS SC QAM, (Reported) (Basaglar Kwikpen) 100 Unit/Ml Inj, 45 UNITS SC QPM, (Reported) Allopurinol (Zyloprim) 300 Mg Tab, 300 MG PO DAILY, (Reported) Bupropion Hcl (Bupropion HCl Xl) 150 Mg Tab, 150 MG PO DAILY, (Reported) Clopidogrel Bisulfate (Clopidogrel) 75 Mg Tab, 75 MG PO DAILY, (Reported) Ferrous Sulfate (Ferrous Sulfate) 325 Mg Tab, 325 MG PO BID Folic Acid (Folic Acid) 1 Mg Tab, 1 MG PO QHS, (Reported) Furosemide (Furosemide) 40 Mg Tab, 40 MG PO BID Gabapentin (Gabapentin) 300 Mg Cap, 300 CAP PO DAILY, (Reported) Gabapentin (Neurontin) 300 Mg Cap, 600 MG PO QHS, (Reported) Glipizide (Glipizide ER) 10 Mg Tab, 10 MG PO BID, (Reported) Metoprolol Tartrate (Metoprolol Tartrate) 25 Mg Tab, 12.5 MG PO BID, (Reported) Omeprazole (Omeprazole) 40 Mg Cap, 40 MG PO BID, (Reported) Rosuvastatin Calcium (Rosuvastatin Calcium) 40 Mg Tab, 40 MG PO DAILY, (Reported) Spironolactone (Spironolactone) 25 Mg Tab, 12.5 MG PO DAILY, (Reported) Trazodone HCl (Trazodone HCl) 50 Mg Tab, 25 MG PO QHS, (Reported) Scheduled PRN Halobetasol Propionate (Halobetasol Propionate) 0.05 % Cre, 1 APLCT TOP ASDIRECTED PRN for PSORIASIS, (Reported) Allergies Coded Allergies: No Known Allergies (Unverified , 06/14/18) NERIS KELLEY MD Jun 18, 2018 16:42
== END 2018-06-18 13:34 | disposition home or self-care (01) | DRG 291 ==
LOC: M ED 18:18 → M ED INP 22:30 → M PCU 06-15 06:32 → M MSPAV 06-15 20:42
PROVIDERS: ADMIT Internal Medicine; ATTEND Internal Medicine
DX: I13.0 Hypertensive heart and chronic kidney disease with heart failure and stage 1 through stage 4 chronic kidney disease, or unspecified chronic kidney disease (principal); I50.23 Acute on chronic systolic (congestive) heart failure; I25.10 Atherosclerotic heart disease of native coronary artery without angina pectoris; M10.9 Gout, unspecified; E11.42 Type 2 diabetes mellitus with diabetic polyneuropathy; R91.8 Other nonspecific abnormal finding of lung field; K59.09 Other constipation; E78.5 Hyperlipidemia, unspecified; N18.3 Chronic kidney disease, stage 3 (moderate); K21.9 Gastro-esophageal reflux disease without esophagitis; D64.9 Anemia, unspecified; Z79.84 Long term (current) use of oral hypoglycemic drugs; Z79.899 Other long term (current) drug therapy; Z87.891 Personal history of nicotine dependence; Z95.1 Presence of aortocoronary bypass graft; Z95.2 Presence of prosthetic heart valve

== ENCOUNTER → 2019-03-23 | Outpatient (CLI) | payer MEDICARE ==
[~2019-03-23] MED LIST: BASA100I SC; BUPR150T3 PO; CLOP75TA2 PO; CONRAY-43 43% 50ML VIAL (Q9960) As Ordered ONE; FERR1TAB8 PO; FOLI1TAB11 PO; FURO40TA2 PO; GABA-843 PO; GLIP10TA18 PO; GLIP10TA6 PO; HALO0.052 TOP; LIDOCAINE 1% MDV 20ML VIAL As Ordered ONE; LOSA100T50 PO; METO1TAB87 PO; NEUR300C PO; OMEP40CA97 PO; ROSU40TA4 PO; SPIR-10 PO; TRAZ-252 PO; TRIAMCINOLONE ACETONIDE SUSP 40 MG/ML VIAL (J3301) As Ordered ONE; ZYLO300T6 PO
--- NOTE | 2019-03-25 17:17 | REP ---
RIGHT HIP INJECTION The procedure was performed under the direct supervision of Dr. Aguilar. The benefits and risks including but not limited to pain infection bleeding and anaphylaxis were explained to the patient and informed consent was obtained. The right femoral neck was localized using fluoroscopic guidance. The skin was prepped and draped in a sterile fashion. 1% lidocaine was used as a local anesthetic. Using fluoroscopic guidance a 22-gauge spinal needle was inserted and advanced to the femoral neck. 0.5 ml of Conray 43 was injected to verify placement. 6 ml of a solution containing 5 ml of 1% lidocaine and 1 ml of Kenalog 40 mg injected. The needle was then removed. The patient tolerated the procedure well and there were no immediate complications. Less than 6 seconds of fluoroscopy time was utilized for this procedure. Electronically Signed by EVETTE Hanna 03/23/2019 05:06 P Electronically Signed by Zoltan Aguilar MD 03/25/2019 05:08 P
== END ==
LOC: M RADPRO 12:41
PROVIDERS: ATTEND Orthopaedic Surgery
DX: M16.11 Unilateral primary osteoarthritis, right hip (principal)
CPT/HCPCS: 20610; 77002; J3301; Q9960

== ENCOUNTER 2020-04-16 14:13 | Observation (INO) | payer MEDICARE ==
[2020-04-16] VITALS (8 sets, daily range): BP systolic 109–138; BP diastolic 57–74
[~2020-04-16] VITALS: Ht 177.8 cm; Wt 96.7 kg
[~2020-04-16 14:13] MED LIST changes: -CONRAY-43 43% 50ML VIAL (Q9960) As Ordered ONE; -LIDOCAINE 1% MDV 20ML VIAL As Ordered ONE; -TRIAMCINOLONE ACETONIDE SUSP 40 MG/ML VIAL (J3301) As Ordered ONE
[2020-04-16 15:08] LABS: BASO % 0.3 % (0.0-1.0); EOS # 0.2 10^3/uL (0.0-0.5); EOS % 2.6 % (0.0-3.0); LYMPH # 0.4 10^3/uL (1.5-5.0); LYMPH % 5.9 % (24.0-44.0); MEAN CORPUSCULAR HEMOGLOBIN 20.7 pg (27.0-33.0); MEAN CORPUSCULAR HGB CONC 26.7 g/dl (32.0-36.5); MEAN CORPUSCULAR VOLUME 77.7 fl (80.0-96.0); MONO # 0.7 10^3/uL (0.0-0.8); MONO % 11.7 % (0.0-5.0); NEUTROPHILS # 4.8 10^3/uL (1.5-8.5); NEUTROPHILS % 79.2 % (36.0-66.0); PLATELET COUNT, AUTOMATED 226 10^3/uL (150-450); RED BLOOD COUNT 3.09 10^6/uL (4.30-6.10); WHITE BLOOD COUNT 6.1 10^3/uL (4.0-10.0)
[2020-04-16 15:10] LABS: HEMOGLOBIN 6.4 g/dl (13.5-17.5)
[2020-04-16 15:21] LABS: INR 1.11; PROTHROMBIN TIME 14.5 SECONDS (12.5-14.3)
[2020-04-16 15:22] LABS: PARTIAL THROMBOPLASTIN TIME 43.9 SECONDS (24.2-38.5)
[2020-04-16 15:34] LABS: ALBUMIN 3.8 GM/DL (3.2-5.2); BILIRUBIN,DIRECT 0.1 MG/DL (0.0-0.2); BILIRUBIN,TOTAL 0.4 MG/DL (0.2-1.0); CALCIUM LEVEL 8.5 MG/DL (8.8-10.2); CK-MB VALUE MASS 2.5 NG/ML (<3.6); CREATININE FOR GFR 2.23 MG/DL (0.70-1.30); GLOMERULAR FILTRATION RATE 31.1 (>42); MB/CK RELATIVE INDEX 2.69 (< OR =4); POTASSIUM SERUM 4.1 MEQ/L (3.5-5.1); TOTAL PROTEIN 6.7 GM/DL (6.4-8.2); TROPONIN I 0.03 NG/ML (< 0.10)
--- NOTE | 2020-04-16 16:25 | REP ---
INDICATION: sob on exertion COMPARISON: 06/14/2018 TECHNIQUE: PA and lateral. FINDINGS: Cardiomegaly is again appreciated. Evidence for prior sternotomy, cardiac valve repair and pacemaker noted. Ill-defined central pulmonary vasculature along with cephalization and increased interstitial markings suggest mild to moderate CHF and correlation is recommended. No focal consolidation. No effusion. No pneumothorax. Skeletal structures demonstrate osteopenia and degenerative changes. IMPRESSION: Findings most compatible with mild to moderate CHF. No focal consolidation or effusion. <Electronically signed by Dick Koch > 04/16/20 [id number]
[2020-04-16 17:16] LABS: RSV AMPLIFICATION NEGATIVE (NEGATIVE)
[2020-04-16] MEDS ORDERED: OTEZ1TAB3 PO (18:00)
[2020-04-16] MEDS ORDERED: METO25TA PO (18:00)
[2020-04-16] MEDS ORDERED: THERTAB12 PO (18:00)
--- NOTE | 2020-04-16 18:12 | HPE ---
HISTORY AND PHYSICAL DATE OF ADMISSION: 04/16/2020 PRINCIPAL DIAGNOSIS: Symptomatic anemia. HISTORY OF PRESENT ILLNESS: Vimal Bojorquez is a 69-year-old patient sent by Dr. France from his office for a hemoglobin of 6.x. He has been having rectal bleeding from hemorrhoids. He is being admitted for transfusion. He has had a problem with decompensated systolic heart failure over the past week. He was in the office for a recheck and found to be very anemic. PAST MEDICAL HISTORY: Patient has known hemorrhoids. He has an up-to-date colonoscopy. He has congestive heart failure with reduced ejection fraction with ejection fraction of 19%. He has an ICD in place. History of coronary artery disease status post CABG and also history of aortic valve replacement. He has type 2 diabetes, hypertensive heart disease, history of gout, and hyperlipidemia. SOCIAL HISTORY: Former smoker. No drugs or alcohol. REVIEW OF SYSTEMS: No epistaxis, urinary bleeding, chest pain, or palpitations. ICD has not discharged. MEDICATIONS: - allopurinol 300 mg daily - Wellbutrin XL 150 mg daily - Plavix 75 mg daily - ferrous sulfate 325 mg b.i.d. - folic acid 1 mg daily - furosemide 40 mg b.i.d. - gabapentin 300 mg in the morning and 600 mg at night - Basaglar 45 units at night, 50 units in the morning - metoprolol tartrate 12.5 mg b.i.d. - omeprazole 40 mg daily - rosuvastatin 40 mg daily - Spironolactone 12.5 mg daily - trazodone 25 mg daily ALLERGIES: None known. FAMILY HISTORY: Non-contributory. PHYSICAL EXAMINATION: NECK: No masses. LUNGS: Have rales both bases. HEART: Regular rate and rhythm with a 1/6 systolic ejection murmur. ABDOMEN: Soft and nontender with no masses. EXTREMITIES: 1+ peripheral edema. No clubbing or cyanosis. LABORATORY DATA: White count 6.1, hemoglobin 6.4, platelets 221,000. Sodium 140, potassium 4.1, BUN 43, creatinine 2.2 (baseline creatinine 1.4), glucose 148. COVID test negative. IMPRESSION: 1. Symptomatic anemia from rectal bleeding from hemorrhoids. He will be transfused two units of packed red blood cells and will confirm stability of his hemoglobin at discharge tomorrow. Defer to his primary care provider to attend to the hemorrhoids, which probably need treatment as his anemia has complicated treating his congestive heart failure. 2. Acute kidney injury superimposed on chronic kidney disease. He has chronic medical kidney disease on renal ultrasound done 06/2018, probably from the anemia though heart failure could be contributing as well. We will transfuse him and recheck his renal function tomorrow. If it is improved, he could be discharged. 3. Coronary artery disease. Continue his current medications. We will hold the Plavix for now in the face of the bleeding. 4. Diabetes. Sliding scale insulin coverage. Restart his oral agents upon discharge. 5. History of gout. Continue his allopurinol. 6. History of neuropathy. Continue his gabapentin.
[2020-04-16] MEDS ORDERED: HumaLOG INSULIN (NovoLOG) PER UNIT SC SCH (21:00)
[2020-04-16] MEDS ORDERED: GABAPENTIN 300 MG CAP PO SCH (21:00)
[2020-04-16] MEDS ORDERED: ROSUVASTATIN 10 MG TAB (CRESTOR) PO SCH (21:00)
[2020-04-17] VITALS (17 sets, daily range): BP systolic 108–144; BP diastolic 57–78
[2020-04-17] MEDS ORDERED: GLUCOSE 4GM CHEW TABLET PO PRN
[2020-04-17] MEDS ORDERED: GLUCAGON INJ 1MG VIAL SC PRN
[2020-04-17] MEDS ORDERED: DEXTROSE 50% 50 ML SYRINGE IV PRN
[2020-04-17] MEDS: OMEPRAZOLE 20 MG CAP PO SCH ×2 (01:34→08:42)
[2020-04-17] MEDS: METOPROLOL TART 12.5 MG PER 1/2 TAB PO SCH ×2 (01:35→08:42)
[2020-04-17 06:01] LABS: HEMATOCRIT 25.9 % (42.0-52.0); HEMOGLOBIN 7.3 g/dl (13.5-17.5); MEAN CORPUSCULAR HGB CONC 28.2 g/dl (32.0-36.5); PLATELET COUNT, AUTOMATED 190 10^3/uL (150-450); RED BLOOD COUNT 3.32 10^6/uL (4.30-6.10); WHITE BLOOD COUNT 5.9 10^3/uL (4.0-10.0)
--- NOTE | 2020-04-17 06:21 | ECGEPIP ---
[facility] - ED Test Date: 2020-04-16 Pat Name: DONNA MELCHOR Department: Room: - Gender: Male Record Librarian: MICHAEL : 1950 Requested By: ERIKA Minor Order Number: [id number] Reading MD: Roseanne Guerra Measurements Intervals [place] Rate: 77 P: 69 MO: 153 QRS: -74 QRSD: 154 T: 105 QT: 450 QTc: 509 Interpretive Statements ELECTRONIC VENTRICULAR PACEMAKER ABNORMAL RHYTHM ECG CW 06/15/18 - NOW PACED Electronically Signed on 04-17-2020 6:21:04 EST by Roseanne Guerra
[2020-04-17 07:05] LABS: CALCIUM LEVEL 8.6 MG/DL (8.8-10.2); CREATININE FOR GFR 1.93 MG/DL (0.70-1.30); GLOMERULAR FILTRATION RATE 36.7 (>42)
[2020-04-17] MEDS: HumaLOG INSULIN (NovoLOG) PER UNIT SC SCH ×3 (07:30→17:27)
[2020-04-17] MEDS ORDERED: GABAPENTIN 300 MG CAP PO SCH (09:00)
[2020-04-17] MEDS ORDERED: buPROPion **XL** TABLET 150MG (WELLBUTRIN XL) PO SCH (09:00)
[2020-04-17] MEDS ORDERED: SPIRONOLACTONE 12.5MG PER 1/2 TABLET PO SCH (09:00)
[2020-04-17] MEDS ORDERED: allopurinoL 300 MG TAB PO SCH (09:00)
--- NOTE | 2020-04-17 10:20 | DSES ---
DISCHARGE SUMMARY DATE OF ADMISSION: 04/16/2020 DATE OF DISCHARGE: 04/17/2020 PRINCIPAL DIAGNOSIS: Symptomatic anemia from chronic gastrointestinal (GI) blood loss from bleeding hemorrhoids. SECONDARY DIAGNOSES: 1. Congestive heart failure with reduced ejection fraction 19%. 2. Coronary artery disease status post coronary artery bypass grafting (CABG). 3. History of aortic valve replacement. 4. Type 2 diabetes. 5. Hypertensive heart disease. 6. History of gout. 7. History of hyperlipidemia. HISTORY: Vimal Bojorquez was sent over by Dr. France to be transude, he had a hemoglobin of 6.x and was having daily rectal bleeding from hemorrhoids. HOSPITAL COURSE: 1. The patient was admitted to a medical bed and transfused two units of packed red blood cells the first day. Follow-up CBC showed hemoglobin had gone from 6.4 to 7.3 and then continued to be up above 8. I gave him two more units of packed red blood cells and anticipate discharge later this afternoon. 2. Acute kidney injury. His renal function was down from baseline probably from the anemia with worsening heart failure. Baseline creatinine was around 1.5; it was 2.2 on admission and 1.9 this morning. Repeat BMP is pending later today. 3. Diabetes. He was on sliding scale insulin coverage during his hospitalization and blood sugar never being much of a problem. 4. Congestive heart failure. He remained well compensated during the course of his hospitalization including with the transfusions. DISCHARGE PLAN: I plan to discharge the patient home after his blood transfusions are completed today. DISCHARGE MEDICATIONS: Unchanged from admission - allopurinol 300 mg daily - Wellbutrin XL 150 mg daily - Plavix 75 mg daily - ferrous sulfate 325 mg b.i.d. - folic acid 1 mg daily - furosemide 40 mg b.i.d. - gabapentin 300 mg in the morning and 600 mg in the evening - Basaglar 45 units at night and 50 units in the morning - metoprolol tartrate 12.5 mg b.i.d. - omeprazole 40 mg daily - rosuvastatin 40 mg daily - Spironolactone 12.5 mg daily - trazodone 25 mg daily DISCHARGE FOLLOW-UP: With his primary care provider in a week. Follow-up with cardiology in a week. We will ask surgeon to see him before discharge, Dr. Madrigal is brazer induction, to see him in hospital and make arrangements for outpatient follow-up.
[2020-04-17 18:09] LABS: HEMATOCRIT 31.7 % (42.0-52.0); MEAN CORPUSCULAR HEMOGLOBIN 22.7 pg (27.0-33.0); MEAN CORPUSCULAR HGB CONC 28.4 g/dl (32.0-36.5); MEAN CORPUSCULAR VOLUME 80.1 fl (80.0-96.0); PLATELET COUNT, AUTOMATED 187 10^3/uL (150-450); RED BLOOD COUNT 3.96 10^6/uL (4.30-6.10)
[2020-04-17 18:36] LABS: CREATININE FOR GFR 1.87 MG/DL (0.70-1.30); GLOMERULAR FILTRATION RATE 38.1 (>42); POTASSIUM SERUM 4.1 MEQ/L (3.5-5.1)
[2020-04-18] MEDS ORDERED: metOLazone 2.5 MG TAB PO SCH (09:00)
== END 2020-04-17 19:35 | disposition home or self-care (01) ==
LOC: M ED 14:13 → M ED INP 17:06 → M MSPAV 20:51
PROVIDERS: ADMIT Family Medicine; ATTEND Family Medicine
DX: D64.9 Anemia, unspecified (principal); K92.2 Gastrointestinal hemorrhage, unspecified; N17.9 Acute kidney failure, unspecified; I50.22 Chronic systolic (congestive) heart failure; I11.0 Hypertensive heart disease with heart failure; I25.10 Atherosclerotic heart disease of native coronary artery without angina pectoris; Z95.1 Presence of aortocoronary bypass graft; Z95.2 Presence of prosthetic heart valve; E78.49 Other hyperlipidemia; M10.9 Gout, unspecified; E11.9 Type 2 diabetes mellitus without complications; Z79.02 Long term (current) use of antithrombotics/antiplatelets; Z79.899 Other long term (current) drug therapy; Z87.891 Personal history of nicotine dependence
CPT/HCPCS: 36415; 36430; 71046; 80048; 80076; 82550; 82553; 84484; 85025; 85027; 85610; 85730; 86850; 86900; 86901; 86920; 87631; 93005; 99285; G0378; P9016

== ENCOUNTER 2020-06-09 15:10 | Inpatient (IN) | payer MEDICARE ==
[~2020-06-09] VITALS: Ht 177.8 cm; Wt 93.9 kg
[~2020-06-09 15:10] MED LIST changes: +BUPR150T12 PO; -BUPR150T3 PO; +GABA-282 PO; -GABA-843 PO; +METO25TA PO; +OTEZ1TAB3 PO; +THEREMS-M1 TAB PO
[2020-06-09] MEDS ORDERED: METO1TAB7 PO (15:37)
[2020-06-09] MEDS ORDERED: TRAZ-252 PO (15:37)
[2020-06-09] MEDS ORDERED: SPIR-10 PO (15:37)
[2020-06-09] MEDS ORDERED: ANOR1AER PO (15:37)
[2020-06-09] MEDS ORDERED: PROV108A INH (15:37)
[2020-06-09] MEDS ORDERED: NITR0.4S14 SL (15:37)
[2020-06-09] MEDS ORDERED: TORS100T PO (15:37)
[2020-06-09] MEDS ORDERED: rectiv TOP (15:37)
--- NOTE | 2020-06-09 16:00 | REP ---
INDICATION: DYSPNEA/COUGH. COMPARISON: 04/16/2020. TECHNIQUE: SINGLE PORTABLE AP VIEW OF THE CHEST WAS PERFORMED. FINDINGS: There is cardiomegaly. There is chronic vascular and interstitial prominence unchanged. No focal infiltrate is seen. Left pacemaker is noted. Multiple sternal wires are present. Plate and screws are seen in the right clavicle. Mediastinal silhouette is unchanged. IMPRESSION: Cardiomegaly. Stable chronic vascular and interstitial prominence. No focal infiltrate. <Electronically signed by Zoltan Aguilar > 06/09/20 [id number]
[2020-06-09] MEDS ORDERED: METO25TA PO (16:07)
[2020-06-09 16:21] LABS: BASO % 0.4 % (0.0-1.0); EOS # 0.2 10^3/uL (0.0-0.5); EOS % 2.9 % (0.0-3.0); HEMATOCRIT 28.6 % (42.0-52.0); HEMOGLOBIN 7.8 g/dl (13.5-17.5); LYMPH # 0.4 10^3/uL (1.5-5.0); LYMPH % 5.2 % (24.0-44.0); MEAN CORPUSCULAR HEMOGLOBIN 22.7 pg (27.0-33.0); MEAN CORPUSCULAR HGB CONC 27.3 g/dl (32.0-36.5); MEAN CORPUSCULAR VOLUME 83.4 fl (80.0-96.0); MONO # 0.8 10^3/uL (0.0-0.8); MONO % 9.9 % (2.0-8.0); NEUTROPHILS # 6.5 10^3/uL (1.5-8.5); PLATELET COUNT, AUTOMATED 255 10^3/uL (150-450); RED BLOOD COUNT 3.43 10^6/uL (4.30-6.10)
[2020-06-09 16:41] LABS: INR 1.19; PROTHROMBIN TIME 15.4 SECONDS (12.5-14.3)
[2020-06-09 16:51] LABS: ALBUMIN 3.8 GM/DL (3.2-5.2); ALT/SGPT 15 U/L (12-78); BILIRUBIN,DIRECT 0.2 MG/DL (0.0-0.2); BILIRUBIN,TOTAL 0.6 MG/DL (0.2-1.0); NT-PRO BNP 5262 PG/ML (<125); TOTAL PROTEIN 6.7 GM/DL (6.4-8.2)
[2020-06-09 16:56] LABS: RSV AMPLIFICATION NEGATIVE (NEGATIVE)
--- NOTE | 2020-06-09 17:03 | HPEPDOC ---
[facility] Medical History & Physical Date of Admission Jun 09, 2020 Date of Service: Jun 09, 2020 Attending Physician: Elsie Ayala MD History and Physical CHIEF COMPLAINT: increased SOB HISTORY OF PRESENT ILLNESS: Patient is a 69-year-old male with past medical history of coronary artery disease status post CABG and AICD placement, hypertension, hyperlipidemia, combined systolic and diastolic CHF , diabetes mellitus, GERD, gout, depression, peripheral arterial disease, peripheral neuropathy, history of tobacco use, depression who was sent into the emergency room at [facility] for in creasing shortness of breath by his cardiology office. The patient states that for the past several weeks he has had increased shortness of breath especially with exertion. He is also noted increased abdominal distention. He is unable to walk long distances, carry items, push or pull much with upcoming increasing shortness of breath and having to sit down. He then takes several minutes to recover. At baseline prior to beginning of the year at this was not his baseline. He had a recent admission in April 2020 for symptomatically anemia. That admission he was transfused 4 units of blood, there was no identified source of bleeding. He has a history of iron deficiency anemia, iron level of 15 and 2019 for which he used to take supplementation for but does no longer. He went to his cardiology office on 06/07/2020 and they nichelle blood at that time. They called him on 06/08/2020 to tell him to come to the emergency room as he was going to be needing to be admitted to be diuresed further and potentially need another transfusion for having a low hemoglobin and hematocrit level. He waited 24 hours and came in today to be evaluated instead. The patient denies chest pain, cough, nausea, vomiting, diarrhea, blurry vision, dark stools, hematemesis, hematuria. He admits to occasional lightheadedness, dizziness and a poor overall appetite over the past several months. He had a recent second Covid shot just this past Thursday. His last colonoscopy/EGD was 01/01/2020 and he was told there were no abnormal findings. In the emergency room vital signs showed blood pressure 147417/5470, temper ature 97.5, respiratory rate 16, heart rate 88 and the paste, 95% on room air. Abnormal labs included a creatinine of 2.2 (baseline creatinine is 1.8 from the beginning of this year), troponin negative, BNP 5262 (last documented BNP on file was from 06/14/2018 at 5095). According to ER physician, she was called directly by the cardiology physician investigative assistant today who told her that the last echocardiogram was fairly recent and showed an ejection fraction of 65%. This is much improved from the last echocardiogram that we have on file many years ago. ECG showed ventricular paced rhythm, no ST or T-wave depressions. Chest x-ray: cardiomegaly, stable chronic vascular and interstitial prominence. No focal infiltrate was seen. H/H7.8/28.6, platelets 255. On exam the patient had no signs or symptoms of bleeding, showed no pallor but became increasingly short of breath with movement on the gurney and with activity. The patient was admitted for increased shortness of breath rule out secondary to fluid overload from congestive heart failure versus symptomatic iron deficiency anemia. Note: The patient states he was in the process of being referred to nephrology as outpatient but he has not been able to follow through with this. They will be consulted this admission to see him and hopefully follow-up with him after discharge. REVIEW OF SYSTEMS: Neg except for what is mentioned above PAST MEDICAL HISTORY: Coronary artery disease status post CABG and AICD placement Hx of aortic valve dysfunction s/p AV replacement HTN HLD Combined systolic and diastolic CHF DM type II GERD gout depression PAD s/p stent placements x 2 in left LE peripheral neuropathy Hx of tobacco use RICHARDSON Hx of hemorrhoids hypertension, hyperlipidemia, congestive heart failure, diabetes mellitus, GERD, gout, depression, peripheral arterial disease, peripheral neuropathy, history of tobacco use, depression RICHARDSON anemia SURGICAL HISTORY: Shoulder surgery Parotid tumor removal Hernia repair CABG Aortic valve replacement PM/ AICD placement LLE arterial stent placement x 2 2020 FAMILY HISTORY: Father: CAD. at 45 y/o Mother: Healthy. at 94 y/o SOCIAL HISTORY: Prior smoker 1 pack per day 45 years. Quit 7/2 years ago. Drinks alcohol daily, denies drug use. Lives alone and is self-employed, has a life partner. Follows with cardiologyDr. [place], nephrology [place] in [place]. Full Code. ALLERGIES: Please see below. HOME MEDICATIONS: Please see below. PHYSICAL EXAMINATION: VS: blood pressure 979486/5470, temperature 97.5, respiratory rate 16, heart rate 88 and the paste, 95% on room air. CONSTITUTIONAL: No acute distress, resting comfortably, AAO x 3 EYES: PERRLA, EOM intact, corrective lenses in place HENT, MOUTH: Normocephalic, atraumatic, moist mucous membranes NECK: SUPPLE, no JVD, no lymphadenopathy, no carotid bruit CV: Regular rate, S1S2 normal, no murmurs/rubs/gallops RESPIRATORY: Clear to auscultation bilaterally, no rales/rhonchi/wheezes GI: BS positive in 4 quadrants, soft, nontender, nondistended, no rebound or guarding, no organomegaly : Deferred MUSCULOSKELETAL: Normal ROM. No cyanosis, clubbing, joint deformity, mild +1 pitting LE extremity edema INTEGUMENTARY: Rashes on upper ext, abd trunk and lower ext- psoriatic in nature-chronic. Otherwise intact, no lesions, no erythema NEUROLOGIC: Cranial Nerves II-XII are intact, no focal deficits PSYCHIATRIC: Mood and affect are normal LABORATORY DATA: Please see below IMAGING: CXR: cardiomegaly, stable chronic vascular and interstitial prominence. No focal infiltrate ASSESSMENT: 69-year-old male with past medical history of coronary artery disease status post CABG and AICD placement, hypertension, hyperlipidemia, combined systolic and diastolic CHF , diabetes mellitus, GERD, gout, depression, peripheral arterial disease, peripheral neuropathy, history of tobacco use, depression admitted for shortness of breath 2/2 to congestive heart failure vs. symptomatic iron deficiency anemia. PLAN: Shortness of breath 2/2 to congestive heart failure vs. symptomatic iron deficiency anemia -Currently saturating well on RA, minimal s/s of fluid overload (min LE edema, no incr PVC on CXR, no cough) -CXR above -Please see below for individual treatment courses for issues above CHF,combined systolic and diastolic. Unlikely to be in exacerbation -Per cardiology PA who spoke with ED provider, most recent o/p echo showed EF 65% (need to confirm after weekend on Thursday) -BNP 5262 with most recent prior to this hospital admission is frm 2019 5095- likely chronically elevated -Minimal s/s of fluid overload from exam, imaging -Trop neg -Will keep on current diuretic regimen -Consulted nephrology to see how to further optimize with current Cr being elevated -C/w metolazone Q2D, BB , spironolactone Q2D, torsemide 150 mg PO daily. Not currently on JEAN Symptomatic RICHARDSON -Recent admissin in 04/2020, transfused 4 U PRBC -H/H today 7.8/28.6, patient admits to worsening SOB since his discharge from the hospital -No s/s of bleeding, most recent EGD/colo in 12/2019 was neg. Hx of hemorrhoids -F/u occult blood, anemia w/u -Last iron level was 15 in 2019 but not currently on iron supplementation? -Type and screen, transfuse 2 U PRBC today, monitor for s/s of fluid overload -F/u post tranfusion H/H, daily CBC CKD Stage III -Appears new baseline Cr since 04/2020 1.8 -Currently Cr 2.2 on several diuretics as o/p -Consulting nephrology to further assess and likely f/u with as o/p -Daily labs HTN -Stable -C/w home meds CAD s/p CABG and AICD placement / hx of aortic valve dysfunction s/p AV replacement -Denies chest pain, trop neg, ECG appears baseline -Follows regularly with Dr. France's o/p cardiology office HLD -Recently was told by PCP to stop statin -They did not replace -F/u lipid panel DM type II -BS controlled -F/u HbA1c -C/w levemir BID, ISS, FS AC/HS GERD -PPI Gout -Allopurinol Depression -Stable PAD s/p stent placements x 2 in left LE -Plavix, stopped statin , not on ASA Peripheral neuropathy -C/w gabapentin Psoriasis -C/w home cream DVT px -heparin DISPOSITION: Admitted to inpatient status. Nephrology consulted. Plan is discharge home when medically improved. Vital Signs Vital Signs Date Time Temp Pulse Resp B/P (MAP) Pulse Ox O2 Delivery O2 Flow Rate FiO2 06/09/20 15:10 97.5 88 16 100/54 (69) 95 Room Air Laboratory Data Labs 24H Laboratory Tests 2 06/09/20 16:06: POC Glucose (Misc Panel) 138H, POC Sodium (Misc Panel) 140, POC Potassium (Misc Panel) 3.6, POC Chloride (Misc Panel) 99, POC Total CO2 (Misc Panel) 29.0H, POC Blood Urea Nitrogen (Misc Panel 33H, POC Ionized Calcium (Misc Panel) 4.7, POC Creatinine (Misc Panel) 2.2H, POC Hematocrit (Misc Panel) 29.0L 06/09/20 16:08: Immature Granulocyte % (Auto) 0.6, Neutrophils (%) (Auto) 81.0H, Lymphocytes (%) (Auto) 5.2L, Monocytes (%) (Auto) 9.9H, Eosinophils (%) (Auto) 2.9, Basophils (%) (Auto) 0.4, Neutrophils # (Auto) 6.5, Lymphocytes # (Auto) 0.4L, Monocytes # (Auto) 0.8, Eosinophils # (Auto) 0.2, Basophils # (Auto) 0.0, Nucleated Red Blo od Cells % (auto) 0.0, Prothrombin Time 15.4H, Prothromb Time International Ratio 1.19, POC Troponin I (Misc) 0.02, Total Bilirubin 0.6, Direct Bilirubin 0.2, Aspartate Amino Transf (AST/SGOT) 15, Alanine Aminotransferase (ALT/SGPT) 15, Alkaline Phosphatase 108, SR-Kmv-J-Type Natriuretic Peptide 5262H, Total Protein 6.7, Albumin 3.8, Albumin/Globulin Ratio 1.3, Thyroid Stimulating Hormone (TSH) 1.980, Coronavirus (COVID-19)(PCR) NEGATIVE, Influenza Type A (RT- PCR) NEGATIVE, Influenza Type B (RT-PCR) NEGATIVE, Respiratory Syncytial Virus (PCR) NEGATIVE CBC/BMP Laboratory Tests 06/09/20 16:08 Home Medications Scheduled Allopurinol (Zyloprim) 300 Mg Tab, 300 MG PO DAILY Apremilast (Otezla) 30 Mg Tablet, 30 MG PO BID Bupropion Hcl (Bupropion Xl) 150 Mg Tab, 150 MG PO DAILY Clopidogrel Bisulfate (Clopidogrel) 75 Mg Tab, 75 MG PO DAILY Gabapentin (Gabapentin) 300 Mg Cap, 300 CAP PO DAILY Gabapentin (Neurontin) 300 Mg Cap, 600 MG PO QHS Insulin Glargine,Hum.rec.anlog (Basaglar Kwikpen U-100) 100 Unit/Ml Inj, 36 UNITS SC BID Metolazone (Metolazone) 2.5 Mg Tablet, 2.5 MG PO Q2D Metoprolol Succinate (Metoprolol Succinate) 50 Mg Tab.er.24h, 50 TAB PO QHS Multivit,Tx with Iron,Minerals (Therems-M) 1 Each Tablet, 1 TAB PO QHS Omeprazole (Omeprazole) 40 Mg Cap, 40 MG PO BID Spironolactone (Spironolactone) 25 Mg Tablet, 25 MG PO Q2D Torsemide (Torsemide) 100 Mg Tablet, 150 MG PO DAILY Scheduled PRN Albuterol Sulfate (Proventil Hfa) 6.7 Gm Hfa.aer.ad, 2 PUFF INH Q4H PRN for SOB/COUGH Halobetasol Propionate (Halobetasol Propionate) 0.05 % Cre, 1 APLCT TOP ASDIRECTED PRN for PSORIASIS Nitroglycerin (Nitroglycerin) 0.4 Mg Tab.subl, 0.4 MG SL NITRO PRN for CHEST PAIN Trazodone HCl (Trazodone HCl) 50 Mg Tablet, 25 TAB PO QHSP PRN for INSOMNIA Allergies Coded Allergies: No Known Allergies (Unverified , 06/14/18) A-FIB/CHADSVASC A-FIB History Current/History of A-Fib/PAF?: No Current PO Anticoag Therapy: No Age/Risk Factor Scoring CHADSVASC: CHADSVASC Response (Comments) Value Age Risk Factor Age 65-74 years old 1 Gender Risk Factor Male 0 Hx of CHF Yes 1 Hx of HTN Yes 1 Hx of Stroke/TIA/or VTE No 0 Hx of Diabetes Yes 1 Hx of Vascular Disease Yes 1 Total 5 Treatment Treatment ordered: Other Other anticoagulant ordered: heparin Elsie Aayla MD Jun 09, 2020 17:03
[2020-06-09] MEDS ORDERED: ALBUTEROL 90 MCG/ACT 8GM HFA INHALER INH PRN (17:05)
[2020-06-09] MEDS ORDERED: NITROGLYCERIN 0.4 MG SUBL TABLET SL PRN (17:05)
[2020-06-09] MEDS ORDERED: GLUCOSE 4GM CHEW TABLET PO PRN (17:05)
[2020-06-09] MEDS ORDERED: GLUCAGON INJ 1MG VIAL SC PRN (17:05)
[2020-06-09] MEDS ORDERED: traZODone 25MG PER 1/2 TABLET PO PRN (17:05)
[2020-06-09] MEDS ORDERED: DEXTROSE 50% 50 ML SYRINGE IV PRN (17:05)
[2020-06-09] MEDS: HumaLOG INSULIN (NovoLOG) PER UNIT SC SCH ×2 (17:30→21:00)
[2020-06-09] MEDS ORDERED: METOPROLOL SUCC (TopROL XL) 50MG **XL** TAB PO ONE (18:00)
[2020-06-09] MEDS ORDERED: MIRALAX *UNIT DOSE* 17GM PACKET PO PRN (18:00)
[2020-06-09 18:15] LABS: BLOOD UREA NITROGEN 36 MG/DL (7-18); CALCIUM LEVEL 8.6 MG/DL (8.8-10.2); CARBON DIOXIDE LEVEL 28 MEQ/L (21-32); CHLORIDE LEVEL 103 MEQ/L (98-107); CREATININE FOR GFR 2.17 MG/DL (0.70-1.30); FERRITIN 8 NG/ML (26-388); GLOMERULAR FILTRATION RATE 32.1 (>42); GLUCOSE, FASTING 141 MG/DL (70-100); IRON (FE) 17 UG/DL (65-175); PERCENT SATURATION 3.5 % (19.7-50.0); POTASSIUM SERUM 3.7 MEQ/L (3.5-5.1); SODIUM LEVEL 139 MEQ/L (136-145); TOTAL IRON BINDING CAPACITY 490 UG/DL (250-450)
[2020-06-09] MEDS ORDERED: ROSU40TA4 PO (18:31)
[2020-06-09 18:55] VITALS: BP 122/66
--- NOTE | 2020-06-09 18:58 | REP ---
INDICATION: abd distention. COMPARISON: None. TECHNIQUE: Two AP views abdomen and pelvis. FINDINGS: There is a normal bowel gas pattern. No significantly dilated bowel loops are seen, with no evidence of obstruction. Diffuse vascular calcifications are present. There are mild degenerative changes of the spine and hips. IMPRESSION: Normal bowel gas pattern. <Electronically signed by Zoltan Aguilar > 06/09/20 [id number]
--- NOTE | 2020-06-09 18:59 | REP ---
INDICATION: ckd stage 3b. COMPARISON: 06/14/2018. TECHNIQUE: Real-time sonographic evaluation of the kidneys is performed. FINDINGS: Renal cortical echogenicity pattern is normal bilaterally and contours are smooth. There is no hydronephrosis bilaterally. There is a cyst in the upper pole the right kidney 2.4 cm and lower pole right kidney 1.6 cm. There is a cyst in the upper left kidney 3.6 cm and lower left kidney 1.5 cm. No large renal calcifications are seen. Urinary bladder is well distended and unremarkable. The right kidney measures 10.7 x 5.6 x 5.8 cm. Left renal dimensions are 10.4 x 3.8 x 5.0 cm. IMPRESSION: No hydronephrosis. Bilateral renal cysts. <Electronically signed by Zoltan Aguilar > 06/09/20 [id number]
[2020-06-09 19:09] LABS: CHOLESTEROL LEVEL 83 MG/DL (<200); CHOLESTEROL RISK RATIO 3.074 (<5); HDL CHOLESTEROL 27 MG/DL (>40); LDL CHOLESTEROL 35 MG/DL (<100); NON-HDL-C 56 MG/DL; TRIGLYCERIDES LEVEL 103 MG/DL (<150)
[2020-06-09 21:31] VITALS: BP 108/58
[2020-06-09] MEDS: HEPARIN SOD (PORCINE) 5000UNITS/ML 1ML VIAL/SYRINGE SC SCH (21:34)
[2020-06-09] MEDS: ROSUVASTATIN 10 MG TAB (CRESTOR) PO SCH (21:34)
[2020-06-09] MEDS: OMEPRAZOLE 20 MG CAP PO SCH (21:34)
[2020-06-09] MEDS: LEVEMIR (INSULIN DETEMIR) 1 UNITS/0.01ML SC SCH (21:34)
[2020-06-09] MEDS: GABAPENTIN 300 MG CAP PO SCH (21:35)
[2020-06-09] MEDS: DOCUSATE SODIUM 100MG CAPSULE PO SCH (21:35)
[2020-06-09 21:46] VITALS: BP 105/58
[2020-06-09 22:00] VITALS: BP 110/64
[2020-06-09 22:31] VITALS: BP 105/58
[2020-06-09 23:31] VITALS: BP 105/57
[2020-06-10] VITALS (15 sets, daily range): BP systolic 102–138; BP diastolic 55–71
[2020-06-10] MEDS: HumaLOG INSULIN (NovoLOG) PER UNIT SC SCH ×4 (07:30→22:19)
[2020-06-10 08:14] LABS: HEMATOCRIT 34.2 % (42.0-52.0); HEMOGLOBIN 9.6 g/dl (13.5-17.5); MEAN CORPUSCULAR HEMOGLOBIN 23.7 pg (27.0-33.0); MEAN CORPUSCULAR HGB CONC 28.1 g/dl (32.0-36.5); MEAN CORPUSCULAR VOLUME 84.4 fl (80.0-96.0); PLATELET COUNT, AUTOMATED 244 10^3/uL (150-450); RED BLOOD COUNT 4.05 10^6/uL (4.30-6.10); WHITE BLOOD COUNT 8.7 10^3/uL (4.0-10.0)
[2020-06-10] MEDS: buPROPion **XL** TABLET 150MG (WELLBUTRIN XL) PO SCH (08:41)
[2020-06-10] MEDS: DOCUSATE SODIUM 100MG CAPSULE PO SCH ×2 (08:41→22:21)
[2020-06-10] MEDS: allopurinoL 300 MG TAB PO SCH (08:41)
[2020-06-10] MEDS: GABAPENTIN 300 MG CAP PO SCH ×2 (08:41→22:21)
[2020-06-10] MEDS: LEVEMIR (INSULIN DETEMIR) 1 UNITS/0.01ML SC SCH ×2 (08:41→22:19)
[2020-06-10] MEDS: OMEPRAZOLE 20 MG CAP PO SCH ×2 (08:41→22:21)
[2020-06-10] MEDS: CLOPIDOGREL 75 MG TAB PO SCH (08:41)
[2020-06-10 08:46] LABS: ALBUMIN 3.8 GM/DL (3.2-5.2); BILIRUBIN,TOTAL 1.1 MG/DL (0.2-1.0); CALCIUM LEVEL 8.7 MG/DL (8.8-10.2); CREATININE FOR GFR 2.16 MG/DL (0.70-1.30); GLOMERULAR FILTRATION RATE 32.2 (>42); TOTAL PROTEIN 6.7 GM/DL (6.4-8.2)
[2020-06-10] MEDS ORDERED: FERROUS SULFATE 325MG TAB PO SCH (09:00)
[2020-06-10] MEDS ORDERED: LACTULOSE 20 GM/30 ML SYRUP UD PO ONE (10:30)
[2020-06-10] MEDS: HEPARIN SOD (PORCINE) 5000UNITS/ML 1ML VIAL/SYRINGE SC SCH ×2 (10:45→22:19)
[2020-06-10] MEDS: TORSEMIDE 100 MG TAB PO SCH (10:45)
[2020-06-10] MEDS ORDERED: PILL CUTTER 1 EACH XX PRN (10:50)
--- NOTE | 2020-06-10 12:14 | IPNPDOC ---
Date Seen The patient was seen on 06/10/20. Progress Note SUBJECTIVE: S/p 2 units PRBC overnight, H/H . with no s/s of bleeding overnight. Occult blood to be collected today. Did well with PT without desaturations OBJECTIVE: PHYSICAL EXAMINATION: VS: Please see below CONSTITUTIONAL: No acute distress, resting comfortably, AAO x 3 EYES: PERRLA, EOM intact, corrective lenses in place HENT, MOUTH: Normocephalic, atraumatic, moist mucous membranes NECK: SUPPLE, no JVD, no lymphadenopathy, no carotid bruit CV: Regular rate, S1S2 normal, no murmurs/rubs/gallops RESPIRATORY: Clear to auscultation bilaterally, no rales/rhonchi/wheezes GI: BS positive in 4 quadrants, soft, nontender, nondistended, no rebound or guarding, no organomegaly : Deferred MUSCULOSKELETAL: Normal ROM. No cyanosis, clubbing, joint deformity, mild +1 pitting LE extremity edema INTEGUMENTARY: Rashes on upper ext, abd trunk and lower ext- psoriatic in nature-chronic. Otherwise intact, no lesions, no erythema NEUROLOGIC: Cranial Nerves II-XII are intact, no focal deficits PSYCHIATRIC: Mood and affect are normal LABORATORY DATA: Please see below IMAGING: CXR: cardiomegaly, stable chronic vascular and interstitial prominence. No focal infiltrate ASSESSMENT: 69-year-old male with past medical history of coronary artery disease status post CABG and AICD placement, hypertension, hyperlipidemia, combined systolic and diastolic CHF , diabetes mellitus, GERD, gout, depression, peripheral arterial disease, peripheral neuropathy, history of tobacco use, depression admitted for shortness of breath 2/2 to congestive heart failure vs. symptomatic iron deficiency anemia. PLAN: Shortness of breath 2/2 to symptomatic iron deficiency anemia and congestive heart failure -Currently saturating well on RA, minimal s/s of fluid overload (min LE edema, n o incr PVC on CXR, no cough) -CXR above -Walked the unit without desaturation per PT -Please see below for individual treatment courses for issues above Symptomatic RICHARDSON -S/p 2 U PRBC since admission, currently denies incr SOB, LH/dizziness, blurry vision. Walked well -Recent admission in 04/2020, transfused 4 U PRBC -H/H today , patient admits to worsening SOB especially when lifting heavy items -Iron still low at 17, low ferritin. Last iron level was 15 in 2019 but not currently on iron supplementation? -To receive Injectafer dose today, can get another dose as o/p in approx 4 weeks through nephrology office -No s/s of bleeding currently that we can see- most recent EGD/colo in 12/2019 was neg. Hx of hemorrhoids -F/u occult blood (ensure neg prior to discharge) -F/u daily CBC CHF,combined systolic and diastolic. Unlikely to not be in exacerbation -Per cardiology PA who spoke with ED provider, most recent o/p echo showed EF 65% (need to confirm after weekend on Thursday) -BNP 5262 with most recent prior to this hospital admission is from 2019 5095- likely chronically elevated -Minimal s/s of fluid overload from exam, imaging -Trop neg -Will keep on home diuretic regimen: metolazone Q2D, BB , spironolactone Q2D, torsemide 150 mg PO daily -Nephrology consulted CKD Stage III -Appears new baseline Cr since 04/2020 1.8 -Currently Cr 2.1 on several diuretics as o/p -Nephrology following and will continue to do so after d/c -Daily labs HTN -Stable -C/w home meds CAD s/p CABG and AICD placement / hx of aortic valve dysfunction s/p AV replacement -Denies chest pain, trop neg, ECG appears baseline -Follows regularly with Dr. France's o/p cardiology office HLD -Recently was told by PCP to stop statin -They did not replace DM type II -BS controlled -Holding off on repeat HbA1c as he has received 4 U PRBC in 04/2020 and another 2 this admission which can scew results -C/w levemir BID, ISS, FS AC/HS GERD -PPI Gout -Allopurinol Depression -Stable PAD s/p stent placements x 2 in left LE -Plavix, stopped statin by PCP , not on ASA Peripheral neuropathy -C/w gabapentin Psoriasis -C/w home cream DVT px -heparin DISPOSITION: Admitted to inpatient status. Nephrology consulted. Plan is discharge home when medically improved. VS, I&O, 24H, Fishbone Vital Signs/I&O Vital Signs Date Time Temp Pulse Resp B/P (MAP) Pulse Ox O2 Delivery O2 Flow Rate FiO2 06/10/20 06:15 97.3 70 18 114/64 95 Room Air I&O- Last 24 Hours up to 6 AM 06/10/20 06:00 Intake Total 1250 ml Output Total 600 ml Balance 650 ml Laboratory Data 24H LABS Laboratory Tests 2 06/09/20 16:06: POC Glucose (Misc Panel) 138H, POC Sodium (Misc Panel) 140, POC Potassium (Misc Panel) 3.6, POC Chloride (Misc Panel) 99, POC Total CO2 (Misc Panel) 29.0H, POC Blood Urea Nitrogen (Misc Panel 33H, POC Ionized Calcium (Misc Panel) 4.7, POC Creatinine (Misc Panel) 2.2H, POC Hematocrit (Misc Panel) 29.0L 06/09/20 16:08: Immature Granulocyte % (Auto) 0.6, Neutrophils (%) (Auto) 81.0H, Lymphocytes (%) (Auto) 5.2L, Monocytes (%) (Auto) 9.9H, Eosinophils (%) (Auto) 2.9, Basophils (%) (Auto) 0.4, Neutrophils # (Auto) 6.5, Lymphocytes # (Auto) 0.4L, Monocytes # (Auto) 0.8, Eosinophils # (Auto) 0.2, Basophils # (Auto) 0.0, Nucleated Red Blood Cells % (auto) 0.0, Prothrombin Time 15.4H, Prothromb Time International Ratio 1.19, POC Troponin I (Misc) 0.02, Anion Gap 8, Glomerular Filtration Rate 32.1L, Calcium Level 8.6L, Iron Level 17L, Total Iron Binding Capacity 490H, Transferrin % Saturation 3.5L, Ferritin 8L, Total Bilirubin 0.6, Direct Bilirubin 0.2, Aspartate Amino Transf (AST/SGOT) 15, Alanine Aminotransferase (ALT/SGPT) 15, Alkaline Phosphatase 108, HV-Yum-E-Type Natriuretic Peptide 5 262H, Total Protein 6.7, Albumin 3.8, Albumin/Globulin Ratio 1.3, Triglycerides Level 103, Total Cholesterol 83, LDL Cholesterol 35, Non-HDL Cholesterol (LDL + VLDL) 56, Total HDL Cholesterol 27L, Cholesterol/HDL Ratio 3.074, Thyroid Stimulating Hormone (TSH) 1.980, Coronavirus (COVID-19)(PCR) NEGATIVE, Influenza Type A (RT-PCR) NEGATIVE, Influenza Type B (RT-PCR) NEGATIVE, Respiratory Syncytial Virus (PCR) NEGATIVE 06/09/20 19:02: Bedside Glucose (Misc Panel) 101 06/09/20 20:51: Bedside Glucose (Misc Panel) 223H 06/10/20 07:35: Bedside Glucose (Misc Panel) 82L 06/10/20 07:55: Nucleated Red Blood Cells % (auto) 0.0, Anion Gap 8, Glomerular Filtration Rate 32.2L, Calcium Level 8.7L, Total Bilirubin 1.1#H, Aspartate Amino Transf (AST/SGOT) 12, Alanine Aminotransferase (ALT/SGPT) 16, Alkaline Phosphatase 116, Total Protein 6.7, Albumin 3.8, Albumin/Globulin Ratio 1.3 CBC/BMP Laboratory Tests 06/09/20 16:08 06/10/20 07:55 Current Medications Current Medications Medications (Trade) Dose Ordered Sig/Satish Route PRN Reason Start Time Stop Time Status Last Admin Dose Admin Albuterol Sulfate (Proventil, Ventolin Hfa) 2 puff Q4H PRN INH SOB/COUGH 06/09/20 17:05 Allopurinol (Zyloprim) 300 mg DAILY PO 06/10/20 09:00 06/10/20 08:41 Bupropion HCl (Wellbutrin Xl) 150 mg DAILY PO 06/10/20 09:00 06/10/20 08:41 Clopidogrel Bisulfate (PLAVix) 75 mg DAILY PO 06/10/20 09:00 06/10/20 08:41 Dextrose (Dextrose 50%) 25 ml ASDIRECTED PRN IV SEE LABEL COMMENTS 06/09/20 17:05 Docusate Sodium (Colace) 100 mg BID PO 06/09/20 21:00 06/10/20 08:41 Gabapentin (Neurontin) 300 mg DAILY PO 06/10/20 09:00 06/10/20 08:41 Gabapentin (Neurontin) 600 mg QHS PO 06/09/20 21:00 06/09/20 21:35 Glucagon (Glucagon) 1 mg ASDIRECTED PRN SC SEE LABEL COMMENTS 06/09/20 17:05 Glucose (Glucose) 16 GM ASDIRECTED PRN PO SEE LABEL COMMENTS 06/09/20 17:05 Heparin Sodium (Porcine) (Heparin) 5,000 units Q12H SC 06/09/20 21:00 06/10/20 10:45 Home Med (Med Rec Complete!) ASDIRECTED XX 06/09/20 16:30 06/09/20 16:33 DC Insulin Detemir (Levemir Insulin) 36 units BID SC 06/09/20 21:00 06/10/20 08:41 Insulin Human Lispro (HumaLOG INSULIN) SEE PROTOCOL TABLE AC SC 06/09/20 17:30 Insulin Human Lispro (HumaLOG INSULIN) SEE PROTOCOL TABLE QHS SC 06/09/20 21:00 Metolazone (Zaroxolyn) 2.5 mg Q2D PO 06/11/20 09:00 Metoprolol Succinate (TopROL XL) 50 mg QHS PO 06/10/20 21:00 Nitroglycerin (Nitrostat (1/ 150)) 0.4 mg Q5MP PRN SL CHEST PAIN 06/09/20 17:05 Omeprazole (PriLOSEC) 40 mg BID PO 06/09/20 21:00 06/10/20 08:41 Polyethylene Glycol (Miralax) 1 pkt DAILYPRN PRN PO CONSTIPATION 06/09/20 18:00 Rosuvastatin Calcium (Crestor) 40 mg QHS PO 06/09/20 21:00 06/09/20 21:34 Senna (Senokot) 2 tab QHS PO 06/10/20 21:00 Spironolactone (Aldactone) 25 mg Q2D PO 06/11/20 09:00 Torsemide (Demadex) 150 mg DAILY PO 06/10/20 09:00 06/10/20 10:45 Trazodone HCl (Desyrel) 25 mg QHSP PRN PO INSOMNIA 06/09/20 17:05 Allergies Coded Allergies: No Known Allergies (Unverified , 06/14/18) Elsie Ayala MD Jun 10, 2020 12:14
[2020-06-10] MEDS ORDERED: FERRIC CARBOXYMALTOSE INJ 750 MG, VIAL MATE ADAPTER 1 EACH in NS 250 ML IV ONE (13:00)
--- NOTE | 2020-06-10 19:46 | ECGEPIP ---
[facility] - ED Test Date: 2020-06-09 Pat Name: DONNA MELCHOR Department: Room: [place] [address] Gender: Male Nip Wrapper: papito : 1950 Requested By: Jania Mederos Order Number: [id number] Reading MD: Robby Sebastian Measurements Intervals [place] Rate: 83 P: 82 [place]: 148 QRS: -47 QRSD: 156 T: 85 QT: 466 QTc: 547 Interpretive Statements Atrial-sensed ventricular-paced rhythm Biventricular pacemaker detected CONCORDANT ST-T SEGMENTS IN V1/V2, SGARBOSSA CRITERIA FOR ACUTE INFARCT Electronically Signed on 06-10-2020 19:46:32 EST by Robby Sebastian
[2020-06-10] MEDS ORDERED: METOPROLOL SUCC (TopROL XL) 50MG **XL** TAB PO SCH (21:00)
[2020-06-10] MEDS ORDERED: SENNA 8.6 MG TAB (SENOKOT) PO SCH (21:00)
[2020-06-10] MEDS: ROSUVASTATIN 10 MG TAB (CRESTOR) PO SCH (22:20)
[2020-06-11 06:00] VITALS: BP 118/63
[2020-06-11 06:23] LABS: HEMATOCRIT 34.5 % (42.0-52.0); HEMOGLOBIN 9.8 g/dl (13.5-17.5); MEAN CORPUSCULAR HEMOGLOBIN 24.1 pg (27.0-33.0); MEAN CORPUSCULAR HGB CONC 28.4 g/dl (32.0-36.5); PLATELET COUNT, AUTOMATED 246 10^3/uL (150-450); RED BLOOD COUNT 4.06 10^6/uL (4.30-6.10); WHITE BLOOD COUNT 9.8 10^3/uL (4.0-10.0)
[2020-06-11 06:48] LABS: ALBUMIN 3.8 GM/DL (3.2-5.2); BILIRUBIN,TOTAL 0.6 MG/DL (0.2-1.0); CALCIUM LEVEL 8.5 MG/DL (8.8-10.2); CREATININE FOR GFR 2.17 MG/DL (0.70-1.30); GLOMERULAR FILTRATION RATE 32.1 (>42); POTASSIUM SERUM 3.6 MEQ/L (3.5-5.1); TOTAL PROTEIN 6.6 GM/DL (6.4-8.2)
[2020-06-11] MEDS: HumaLOG INSULIN (NovoLOG) PER UNIT SC SCH ×2 (07:28→12:00)
[2020-06-11] MEDS: LEVEMIR (INSULIN DETEMIR) 1 UNITS/0.01ML SC SCH (07:50)
[2020-06-11] MEDS ORDERED: DOK1CAP7 PO (08:11)
[2020-06-11] MEDS ORDERED: POLY17PO18 PO (08:11)
[2020-06-11] MEDS ORDERED: SPIRONOLACTONE 25 MG TAB PO SCH (09:00)
[2020-06-11] MEDS ORDERED: metOLazone 2.5 MG TAB PO SCH (09:00)
[2020-06-11] MEDS: DOCUSATE SODIUM 100MG CAPSULE PO SCH (09:19)
[2020-06-11] MEDS: allopurinoL 300 MG TAB PO SCH (09:19)
[2020-06-11] MEDS: buPROPion **XL** TABLET 150MG (WELLBUTRIN XL) PO SCH (09:19)
[2020-06-11] MEDS: GABAPENTIN 300 MG CAP PO SCH (09:20)
[2020-06-11] MEDS: CLOPIDOGREL 75 MG TAB PO SCH (09:20)
[2020-06-11] MEDS: OMEPRAZOLE 20 MG CAP PO SCH (09:20)
[2020-06-11] MEDS: HEPARIN SOD (PORCINE) 5000UNITS/ML 1ML VIAL/SYRINGE SC SCH (09:20)
[2020-06-11] MEDS: TORSEMIDE 100 MG TAB PO SCH (09:20)
--- NOTE | 2020-06-11 10:59 | CR ---
NEPHROLOGY CONSULTATION DATE: 06/10/2020 REQUESTING PHYSICIAN: Dr. Ayala. REASON FOR CONSULTATION: Chronic kidney disease (CKD) stage IV with symptomatic anemia and combined systolic and diastolic congestive heart failure. HISTORY OF PRESENT ILLNESS: Mr. Bojorquez is previously unknown to me. He is a 69-year-old male with a past medical history of significant cardiac disease, including coronary artery disease (CAD) status post coronary artery bypass graft (CABG) and automatic cardioverter defibrillator (AICD) placement, hypertension, dyslipidemia, combined systolic and diastolic congestive heart failure, along with insulin dependent diabetes mellitus, chronic kidney disease (CKD) stage IV and other comorbid conditions mentioned below. Patient was directed to come to the hospital from the nurse practitioner in the cardiology office due to abnormal blood work with severely low hemoglobin. He was recently admitted in April 2020 also for symptomatic anemia and was transfused 4 units of packed red blood cells on that admission, but no etiology was found to explain the anemia. Patient reports a colonoscopy and endoscopy in December 2019 and he verbally tells me there was no abnormal finding. He has never had a pill endoscopy. He has severe iron deficiency anemia on labs as far back as 2018. Patient tells me that his telesales representative has uptitrated his diuretic. He was previously on Lasix, but switched over to torsemide in April. He reports that he had peripheral edema, but this had resolved since he was started on torsemide. His main complaint to me today is dyspnea with exertion and also abdominal fullness. Laboratory studies show mildly worsening CKD stage IV. PAST MEDICAL HISTORY: 1. Chronic kidney disease (CKD) stage IV. 2. Coronary artery disease status post coronary artery bypass graft (CABG) and automatic cardioverter defibrillator (AICD). 3. History of aortic valve dysfunction status post aortic valve repair. 4. Hypertension. 5. Dyslipidemia. 6. Combined systolic and diastolic congestive heart failure. 7. Type 2 diabetes mellitus. 8. Gastroesophageal reflux disease (GERD). 9. Gout. 10. Depression. 11. Peripheral arterial disease status post stent placement. 12. Peripheral neuropathy. 13. History of tobacco use. 14. Iron deficiency anemia. PAST SURGICAL HISTORY: 1. Shoulder surgery. 2. Parotid tumor removal. 3. Hernia repair. 4. Coronary artery bypass graft (CABG). 5. Aortic valve replacement. 6. Pacemaker/AICD placement. 7. Left lower extremity arterial stent placements. FAMILY HISTORY: Father of coronary artery disease. SOCIAL HISTORY: He is an ex-smoker, 45 pack year history. He reports no drug use, but does have regular alcohol intact. 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 ALLERGIES: No known drug allergies. HOME MEDICATIONS: Reviewed and include: - allopurinol - Otezla - bupropion - gabapentin - insulin - metoprolol - omeprazole - spironolactone - torsemide - Hospital medication list also includes metolazone, but the patient tells me he has not recently been taking that. REVIEW OF SYSTEMS: CONSTITUTIONAL: He denies fevers or chills. EYES: He denies visual changes or tearing. EARS, NOSE AND THROAT (ENT): He denies rhinorrhea or epistaxis. CARDIAC: He reports congestive heart failure, dyspnea and history of valvular heart disease. He reports improved leg swelling. RESPIRATORY: He reports dyspnea with even mild exertion. He denies hemoptysis or pleurisy. GASTROINTESTINAL: He denies nausea, vomiting or diarrhea. He reports recent endoscopy, upper and lower. GENITOURINARY: He reports occasional weak urine stream. He denies dysuria or hematuria. ENDOCRINE: He reports diabetes mellitus. He denies thyroid issues. MUSCULOSKELETAL: He reports improvement in leg swelling. He reports history of gout. HEMATOLOGIC: He reports recurrent anemia requiring blood transfusions. PSYCHIATRIC: He denies history of anxiety. He reports history of depression. NEUROLOGIC: He denies seizures or syncope. The remainder of review of symptoms is negative or as per history of present illness (HPI). PHYSICAL EXAMINATION: VITAL SIGNS: Temperature 97.3, pulse 70, respiratory rate 18, blood pressure 114/64, saturating 95-97% on room air. GENERAL: Patient is seen walking around the room in no apparent distress, but does get dyspneic with mild exertion. HEAD: Extraocular muscles are intact. There is conjunctival pallor. EARS, NOSE AND THROAT: Unremarkable. The jugular veins were not elevated while he was upright. HEART SOUNDS: Regular S1, S2. There is trace to 1+ leg edema. There is old healed midline incision noted. There is a pacemaker in the left chest wall. LUNGS: Clear to auscultation bilaterally. No crackle, rale or rhonchus. ABDOMEN: Soft and somewhat distended. There are bowel sounds. EXTREMITIES: No clubbing or cyanosis. There is trace to 1+ edema. NEUROLOGIC: He is oriented times three. No focal deficits. PSYCHIATRIC: Appropriate mood and affect. There are no costovertebral angle tenderness. LABORATORY DATA: Sodium 140, potassium 4.0, bicarbonate 28, BUN 38, creatinine 2.1. BNP 5200. Ferritin of 8. Iron of 17. Total iron binding capacity of 490. Hemoglobin 7.8. He received 2 units packed red blood cells and hemoglobin came up to 9.6. Platelets 244. IMAGING DATA: Renal ultrasound done yesterday shows no hydronephrosis. There are bilateral renal cysts and the urinary bladder is distended. Chest x-ray shows no focal infiltrates. INPATIENT MEDICATIONS: - albuterol as needed - allopurinol 300 mg by mouth daily - Wellbutrin XL 150 mg by mouth daily - Plavix 75 mg by mouth daily - docusate 100 mg by mouth twice a day - gabapentin 600 mg in the evening, 300 mg in the morning - heparin 5000 units subcutaneous every 12 hours - insulin - lactulose 30 mL by mouth times one - metolazone 2.5 mg every other day - torsemide 150 mg daily - spironolactone 25 mg every other day - metoprolol 50 mg by mouth at bedtime - omeprazole 40 mg by mouth twice a day - MiraLax as needed - Crestor 40 mg by mouth at bedtime - trazodone 25 mg by mouth at bedtime as needed for insomnia. PROBLEMS: 1. Chronic kidney disease (CKD) stage IV. Patient's renal function is fairly close to baseline. Prior labs from 2019 to present are reviewed. His creatinine has uptrended from around 1.8 to 2.1 in the setting of severe symptomatic anemia and patient also reports that over the past two months, his diuretics have been uptitrated by cardiology. He was previously on Lasix and he was switched over to torsemide 150 mg daily and he reports significant improvement in his peripheral edema since being on torsemide. I would continue the current diuretic regimen of torsemide and spironolactone. Patient tells me that he has not been taking metolazone at home. We can continue that while he is inpatient, given that he has received blood products. 2. Iron deficiency anemia, recurrent. Patient was hospitalized in April and was transfused 4 units. Labs show severe iron deficiency going back to 2019. He had colonoscopy and esophagogastroduodenoscopy (EGD) in December 2019 and he verbally reports no acute finding. I suggest he should have fecal occult blood testing and should probably have a capsule endoscopy because his iron stores are extremely low and it is quite suspicious for occult bleed. He was transfused two units packed red blood cells over night. He is on omeprazole and I have ordered Injectafer 750 mg intravenous (IV) times one and once his iron stores are replete, we can also start him on erythropoietin stimulating agent, as indicated. 3. Combined systolic and diastolic congestive heart failure. Echocardiogram is pending from the cardiology office. Patient looks reasonably compensated on exam. His diuretic has been uptitrated outpatient by cardiology. He reports he had leg edema that all resolved. He does have some abdominal distention and I want to make sure he has no ascites. Limited abdominal ultrasound is required for that reason. Continue torsemide and spironolactone. He does not take metolazone at home, but we can give him 2.5 mg every other day while he is here, given that he is receiving blood products, IV iron, et cetera. 4. Urinary retention. Patient complains of occasional weak urine stream. His renal ultrasound also showed distended bladder. I want to make sure that he is not in acute retention. Postvoid residual bladder scan is requested. 5. Hypertension. Blood pressures are beautifully controlled and no change is being made to the current regimen. Thank you for involving me in the care of Mr. Bojorquez. I will be happy to follow him along with you.
[2020-06-11 11:13] LABS: VITAMIN B12 LEVEL 1089 PG/ML (247-911)
[2020-06-11 11:14] LABS: FOLATE > 24.0 NG/ML (>5.4)
--- NOTE | 2020-06-11 16:52 | DS.PDOC ---
Discharge Summary General Date of Admission Jun 09, 2020 at 17:04 Date of Discharge 06/11/20 Attending Physician: Elsie Ayala MD Discharge Summary HISTORY OF PRESENT ILLNESS: Patient is a 69-year-old male with past medical history of coronary artery disease status post CABG and AICD placement, hypertension, hyperlipidemia, combined systolic and diastolic CHF , diabetes mellitus, GERD, gout, depression, peripheral arterial disease, peripheral neuropathy, history of tobacco use, depression who was sent into the emergency room at [facility] for increasing shortness of breath by his cardiology office. The patient states that for the past several weeks he has had increased shortness of breath especially with exertion. He is also noted increased abdominal distention. He is unable to walk long distances, carry items, push or pull much with upcoming increasing shortness of breath and having to sit down. He then takes several minutes to recover. At baseline prior to beginning of the year at this was not his baseline. He had a recent admission in April 2020 for symptomatically anemia. That admission he was transfused 4 units of blood, there was no identified sour ce of bleeding. He has a history of iron deficiency anemia, iron level of 15 and 2019 for which he used to take supplementation for but does no longer. He went to his cardiology office on 06/07/2020 and they nichelle blood at that time. They called him on 06/08/2020 to tell him to come to the emergency room as he was going to be needing to be admitted to be diuresed further and potentially need another transfusion for having a low hemoglobin and hematocrit level. He waited 24 hours and came in today to be evaluated instead. The patient denies chest pain, cough, nausea, vomiting, diarrhea, blurry vision, dark stools, hematemesis, hematuria. He admits to occasional lightheadedness, dizziness and a poor overall appetite over the past several months. He had a recent second Covid shot just this past Thursday. His last colonoscopy/EGD was 01/01/2020 and he was told there were no abnormal findings. In the emergency room vital signs showed blood pressure 517107/5470, temperature 97.5, respiratory rate 16, heart rate 88 and the paste, 95% on room air. Abnormal labs included a creatinine of 2.2 (baseline creatinine is 1.8 from the beginning of this year), troponin negative, BNP 5262 (last documented BNP on file was from 06/14/2018 at 5095). According to ER physician, she was called directly by the cardiology physician assistant cross country coach today who told her that the last echocardiogram was fairly recent and showed an ejection fraction of 65%. This is much improved from the last echocardiogram that we have on file many years ago. ECG showed ventricular paced rhythm, no ST or T-wave depressions. Chest x-ray: cardiomegaly, stable chronic vascular and interstitial prominence. No focal infiltrate was seen. H/H7.8/28.6, platelets 255. On exam the patient had no signs or symptoms of bleeding, showed no pallor but became increasingly short of breath with movement on the gurney and with activity. The patient was admitted for increased shortness of breath rule out secondary to fluid overload from c ongestive heart failure versus symptomatic iron deficiency anemia. Note: The patient states he was in the process of being referred to nephrology as outpatient but he has not been able to follow through with this. They will be consulted this admission to see him and hopefully follow-up with him after discharge. HOSPITAL COURSE: Patient's shortness of breath was found to be likely multifactorial to symptomatic iron deficiency anemia and congestive heart failure. He remained on RA, had minimal s/s of fluid overload (min LE edema, no incr PVC on CXR, no cough). CXR was neg for fluid overload. He walked the unit without desaturation per PT. S/p 2 U PRBC since admission, currently denies incr SOB, LH/dizziness, blurry vision. Recent admission in 04/2020, transfused 4 U PRBC. His H/H remained stable after blood and he corrected appropriately. Iron still low at 17, low ferritin so he was also given dose of Injectafer while here. Nephrology followed while here due to underlying CKD and will f/u with him in office to receive more iron supplementation IV. He as kept on his home dose of diuretics, as she did not appear in exacerbation and not fluid overloaded grossly. Dr. France was updated on this admission on 06/11/20, day of discharge. If iron continues to drop despite supplementation, would recommend additional workup/imaging o/p. Other chronic issues remained stable. PAST MEDICAL HISTORY: Coronary artery disease status post CABG and AICD placement Hx of aortic valve dysfunction s/p AV replacement HTN HLD Combined systolic and diastolic CHF DM type II GERD gout depression PAD s/p stent placements x 2 in left LE peripheral neuropathy Hx of tobacco use RICHARDSON Hx of hemorrhoids hypertension, hyperlipidemia, congestive heart failure, diabetes mellitus, GERD, gout, depression, peripheral arterial disease, peripheral neuropathy, history of tobacco use, depression RICHARDSON anemia SURGICAL HISTORY: Shoulder surgery Parotid tumor removal Hernia repair CABG Aortic valve replacement PM/ AICD placement LLE arterial stent placement x 2 2020 FAMILY HISTORY: Father: CAD. at 45 y/o Mother: Healthy. at 94 y/o SOCIAL HISTORY: Prior smoker 1 pack per day 45 years. Quit 7/2 years ago. Drinks alcohol daily, denies drug use. Lives alone and is self-employed, has a life partner. Follows with cardiologyDr. France, [place] in [place] Full Code. PHYSICAL EXAMINATION: VS: Please see below CONSTITUTIONAL: No acute distress, resting comfortably, AAO x 3 EYES: PERRLA, EOM intact, corrective lenses in place HENT, MOUTH: Normocephalic, atraumatic, moist mucous membranes NECK: SUPPLE, no JVD, no lymphadenopathy, no carotid bruit CV: Regular rate, S1S2 normal, no murmurs/rubs/gallops RESPIRATORY: Clear to auscultation bilaterally, no rales/rhonchi/wheezes GI: BS positive in 4 quadrants, soft, nontender, nondistended, no rebound or guarding, no organomegaly : Deferred MUSCULOSKELETAL: Normal ROM. No cyanosis, clubbing, joint deformity, mild +1 pitting LE extremity edema INTEGUMENTARY: Rashes on upper ext, abd trunk and lower ext- psoriatic in nature-chronic. Otherwise intact, no lesions, no erythema NEUROLOGIC: Cranial Nerves II-XII are intact, no focal deficits PSYCHIATRIC: Mood and affect are normal LABORATORY DATA: Please see below IMAGING: CXR: cardiomegaly, stable chronic vascular and interstitial prominence. No focal infiltrate ASSESSMENT: 69-year-old male with past medical history of coronary artery disease status post CABG and AICD placement, hypertension, hyperlipidemia, combined systolic and diastolic CHF , diabetes mellitus, GERD, gout, depression, peripheral arterial disease, peripheral neuropathy, history of tobacco use, depression admitted for shortness of breath 2/2 to congestive heart failure vs. symptomatic iron deficiency anemia. PLAN: Shortness of breath 2/2 to symptomatic iron deficiency anemia and congestive heart failure -Currently saturating well on RA, minimal s/s of fluid overload (min LE edema, no incr PVC on CXR, no cough) -CXR above -Walked the unit without desaturation per PT -Please see below for individual treatment courses for issues above Symptomatic RICHARDSON -S/p 2 U PRBC since admission, currently denies incr SOB, LH/dizziness, blurry vision. Walked well -Recent admission in 04/2020, transfused 4 U PRBC -H/H stable, patient admits to worsening SOB especially when lifting heavy items -Iron still low at 17, low ferritin. -Occult neg. -No s/s of bleeding currently that we can see- most recent EGD/colo in 12/2019 was neg. -May need further evaluation with additional studies as o/p if iron levels continue to decrease. -Ferrous sulfate BID, colace BID at discharge. S/p Injectafer while here- will get another dose o/p in nephrology office in 4 weeks. CHF,combined systolic and diastolic. Unlikely to not be in exacerbation -Per cardiology PA who spoke with ED provider, most recent o/p echo showed EF 65% -BNP 5262 with most recent prior to this hospital admission is from 2019 at 5095- likely chronically elevated -Minimal s/s of fluid overload from exam, imaging -Trop neg -Per nephrology, keep on home diuretic regimen: metolazone Q2D, BB , spironolactone Q2D, torsemide 150 mg PO daily CKD Stage III -Appears new baseline Cr since 04/2020 1.8 -Currently Cr 2.17 on several diuretics as o/p -Nephrology will to follow after d/c HTN -Stable -C/w home meds CAD s/p CABG and AICD placement / hx of aortic valve dysfunction s/p AV replacement -Denies chest pain, trop neg, ECG appears baseline -Follows regularly with Dr. France's o/p cardiology office HLD -Recently was told by PCP to stop statin -They did not replace DM type II -BS controlled -Holding off on repeat HbA1c as he has received 4 U PRBC in 04/2020 and another 2 this admission which can scew results -C/w home regimen. GERD -PPI Gout -Allopurinol Depression -Stable PAD s/p stent placements x 2 in left LE -Plavix, stopped statin by PCP , not on ASA Peripheral neuropathy -C/w gabapentin Psoriasis -C/w home cream DISPOSITION: Discharged today to f/u with Dr. France's office and Nephrology. TIME SPENT ON DISCHARGE: 35 minutes. Vital Signs/I&Os Vital Signs Date Time Temp Pulse Resp B/P (MAP) Pulse Ox O2 Delivery O2 Flow Rate FiO2 06/11/20 06:00 98.4 60 20 118/63 (81) 94 06/10/20 16:00 Room Air I&O- Last 24 Hours up to 6 AM 06/11/20 06:00 Intake Total 1605 ml Output Total 3250 ml Balance -1645 ml Laboratory Data Labs 24H Laboratory Tests 2 06/10/20 16:57: Bedside Glucose (Misc Panel) 115H 06/10/20 20:21: Bedside Glucose (Misc Panel) 181H 06/11/20 05:46: Nucleated Red Blood Cells % (auto) 0.2H, Anion Gap 9, Glomerular Filtration Rate 32.1L, Calcium Level 8.5L, Total Bilirubin 0.6, Aspartate Amino Transf (AST/SGOT) 14, Alanine Aminotransferase (ALT/SGPT) 16, Alkaline Phosphatase 110, Total Protein 6.6, Albumin 3.8, Albumin/Globulin Ratio 1.4 06/11/20 11:35: Bedside Glucose (Misc Panel) 131H CBC/BMP Laboratory Tests 06/11/20 05:46 FSBS Laboratory Tests Test 06/10/20 16:57 06/10/20 20:21 06/11/20 11:35 Range/Units Bedside Glucose (Misc Panel) 115 181 131 83-110 MG/DL Microbiology Microbiology 06/10/20 Stool Occult Blood (TALIA) - Final, Complete Discharge Medications Scheduled Allopurinol (Zyloprim) 300 Mg Tab, 300 MG PO DAILY, (Reported) Apremilast (Otezla) 30 Mg Tablet, 30 MG PO BID, (Reported) Bupropion Hcl (Bupropion Xl) 150 Mg Tab, 150 MG PO DAILY, (Reported) Clopidogrel Bisulfate (Clopidogrel) 75 Mg Tab, 75 MG PO DAILY, (Reported) Docusate Sodium (Dok) 100 Mg Capsule, 100 MG PO BID Gabapentin (Gabapentin) 300 Mg Cap, 300 CAP PO DAILY, (Reported) Gabapentin (Neurontin) 300 Mg Cap, 600 MG PO QHS, (Reported) Insulin Glargine,Hum.rec.anlog (Basaglar Kwikpen U-100) 100 Unit/Ml Inj, 36 UNITS SC BID, (Reported) Metolazone (Metolazone) 2.5 Mg Tablet, 2.5 MG PO Q2D, (Reported) Metoprolol Succinate (Metoprolol Succinate) 50 Mg Tab.er.24h, 50 TAB PO QHS, (Reported) Multivit,Tx with Iron,Minerals (Therems-M) 1 Each Tablet, 1 TAB PO QHS, (Reported) Omeprazole (Omeprazole) 40 Mg Cap, 40 MG PO BID, (Reported) Rosuvastatin Calcium (Rosuvastatin Calcium) 40 Mg Tablet, 40 MG PO QHS, (Reported) Spironolactone (Spironolactone) 25 Mg Tablet, 25 MG PO Q2D, (Reported) Torsemide (Torsemide) 100 Mg Tablet, 150 MG PO DAILY, (Reported) Scheduled PRN Albuterol Sulfate (Proventil Hfa) 6.7 Gm Hfa.aer.ad, 2 PUFF INH Q4H PRN for SOB/COUGH, (Reported) Halobetasol Propionate (Halobetasol Propionate) 0.05 % Cre, 1 APLCT TOP ASDIR ECTED PRN for PSORIASIS, (Reported) Nitroglycerin (Nitroglycerin) 0.4 Mg Tab.subl, 0.4 MG SL NITRO PRN for CHEST PAIN, (Reported) Polyethylene Glycol 3350 (Polyethylene Glycol 3350) 17 Gm Powd.pack, 1 PKT PO DAILYPRN PRN for CONSTIPATION Trazodone HCl (Trazodone HCl) 50 Mg Tablet, 25 TAB PO QHSP PRN for INSOMNIA, (Reported) Allergies Coded Allergies: No Known Allergies (Unverified , 06/14/18) Eslie Ayala MD Jun 11, 2020 16:52
[2020-06-11] MEDS ORDERED: FERR1TAB8 PO (16:57)
--- NOTE | 2020-06-12 00:34 | IPN ---
INPATIENT PROGRESS NOTE DATE: 06/11/2020 SUBJECTIVE: Patient seen and examined this morning at the bedside. He denies any complaints. His renal function remains stable. His FOBT resulted negative. He reports his dyspnea is at usual baseline. I discussed with him regarding need for further I.V. infusion in the outpatient setting and probably starting erythropoietin agent as well. OBJECTIVE: VITAL SIGNS: Temperature 98.4, pulse 60, respiratory rate 20, blood pressure 118/63, saturating 94 to 100% on room air. INTAKE AND OUTPUT: Intake yesterday was 2.4 liters. Urine output was 3.2 liters. Weight in the bed scale today is 93.9 kg. GENERAL: Patient is seen awake, alert, oriented, walked around the room in no distress. HEENT: Extraocular muscles are intact. Tongue is moist. Neck is supple. Jugular veins are not elevated. There is no carotid bruit. HEART: Sounds are regular S1, S2. There is trace leg edema bilaterally. LUNGS: Clear to auscultation. No crackle, rale or rhonchus. ABDOMEN: Soft and nontender. There are bowel sounds. EXTREMITIES: Negative for cyanosis or clubbing. There is trace edema. SKIN: Normal temperature and turgor. NEUROLOGIC: Oriented x3. No focal deficit. LABORATORY STUDIES: Sodium 142, potassium 3.6, bicarbonate 28, BUN 39, creatinine 2.1. Hemoglobin 9.8, platelets 246,000. Stool occult blood was negative. IMAGING: Abdominal ultrasound result is pending. INPATIENT MEDICATIONS: Reviewed by myself and no change as compared to yesterday. PROBLEMS: 1. Chronic kidney disease stage 4: Patient's renal function is fairly close to his usual baseline. His underlying CKD is likely related to hypertensive "small vessel" nephrosclerosis and chronic cardiorenal syndrome. He can be discharged on his usual home diuretic regimen. His volume status is acceptable. His electrolytes are acceptable and his renal imaging was benign. 2. Iron deficiency anemia recurrent: Patient was transfused 2 units on this admission, he also received 4 units of blood on admission in April. Laboratory studies showed severe iron deficiency going back to 2018. He had a colonoscopy and EGD in 2019 and he verbally reports no acute finding. He had an FOBT on this admission that was negative. I would still give consideration for capsule endoscopy in the outpatient setting because his iron stores have been extremely low, which is suspicious for occult bleed. He received Injectafer 750 mg I.V. times one on this admission and we will give another dose of Injectafer in the outpatient setting. I will start him on ROLANDA therapy as indicated. 3. Combined systolic and diastolic congestive heart failure: Patient looks reasonably compensated on exam, he states he has been doing much better since Dr. France started him on Torsemide and he continues on Spironolactone as well. He does have abdominal distention on exam and a limited abdominal ultrasound was ordered to rule out any ascites and the report is still pending. He continues on oral fluid restriction. He is not on an JEAN or ARB in view of advanced underlying chronic kidney disease.
== END 2020-06-11 13:54 | disposition home or self-care (01) | DRG 812 ==
LOC: M ED 15:10 → M ED INP 17:04 → M MSPAV 18:52
PROVIDERS: ADMIT Internal Medicine; ATTEND Internal Medicine
PROC: 30233N1 Transfusion of Nonautologous Red Blood Cells into Peripheral Vein, Percutaneous Approach (ICD-10-PCS; principal; 2020-06-09)
DX: D50.9 Iron deficiency anemia, unspecified (principal); I50.42 Chronic combined systolic (congestive) and diastolic (congestive) heart failure; I13.0 Hypertensive heart and chronic kidney disease with heart failure and stage 1 through stage 4 chronic kidney disease, or unspecified chronic kidney disease; N18.4 Chronic kidney disease, stage 4 (severe); R06.02 Shortness of breath; I25.10 Atherosclerotic heart disease of native coronary artery without angina pectoris; E78.5 Hyperlipidemia, unspecified; E11.51 Type 2 diabetes mellitus with diabetic peripheral angiopathy without gangrene; K21.9 Gastro-esophageal reflux disease without esophagitis; M10.9 Gout, unspecified; F32.9 Major depressive disorder, single episode, unspecified; L40.9 Psoriasis, unspecified; E11.22 Type 2 diabetes mellitus with diabetic chronic kidney disease; E11.42 Type 2 diabetes mellitus with diabetic polyneuropathy; R33.9 Retention of urine, unspecified; Z87.891 Personal history of nicotine dependence; Z95.2 Presence of prosthetic heart valve; Z95.810 Presence of automatic (implantable) cardiac defibrillator; Z95.1 Presence of aortocoronary bypass graft; Z95.820 Peripheral vascular angioplasty status with implants and grafts; Z20.822 Contact with and (suspected) exposure to COVID-19; Z79.4 Long term (current) use of insulin; Z79.899 Other long term (current) drug therapy

== ENCOUNTER → 2020-07-30 | Outpatient (REF) | payer MEDICARE ==
[~2020-07-30] MED LIST changes: +ANOR1AER PO; +DOK1CAP7 PO; +METO1TAB7 PO; +NITR0.4S14 SL; +POLY17PO18 PO; +PROV108A INH; +TORS100T PO; +rectiv TOP
[2020-07-30 19:48] LABS: PERCENT SATURATION 14.1 % (19.7-50.0)
== END ==
LOC: M LAB REF 16:47
PROVIDERS: ATTEND Internal Medicine Nephrology
DX: D50.9 Iron deficiency anemia, unspecified (principal)

== ENCOUNTER 2020-08-16 13:24 | Outpatient (CLI) | payer MEDICARE ==
[~2020-08-16] VITALS: Ht 180.3 cm; Wt 90.9 kg
[~2020-08-16 13:24] MED LIST changes: +ALBUTEROL SULFATE 2.5 MG/0.5 ML INH NEB SOLN INH PRN; +EPINEPHrine INJ 1 MG/ML 1ML AMP IM PRN; +diphenhydrAMINE 50MG/ML VIAL (J1200) IV PRN; +methylPREDNISolone 125MG 2ML VIAL IV PRN
[2020-08-16 13:30] VITALS: BP 139/65
[2020-08-16] MEDS ORDERED: FERRIC CARBOXYMALTOSE INJ 750 MG, VIAL MATE ADAPTER 1 EACH in NS 250 ML IV ONE (13:30)
[2020-08-16] MEDS ORDERED: NS 1,000 ML IV SCH (13:30)
[2020-08-16 14:30] VITALS: BP 136/67
[2020-08-16 15:30] VITALS: BP 142/78
[2020-08-16 15:50] VITALS: BP 127/65
[2020-08-16 16:12] VITALS: BP 146/71
== END 2020-08-16 16:15 | disposition home or self-care (01) ==
LOC: M INFU 13:24
PROVIDERS: ATTEND Internal Medicine Nephrology
DX: D50.9 Iron deficiency anemia, unspecified (principal)
CPT/HCPCS: 96365; 96366; J1439

== ENCOUNTER → 2020-12-31 | Outpatient (REF) | payer MEDICARE ==
[~2020-12-31] MED LIST changes: -ALBUTEROL SULFATE 2.5 MG/0.5 ML INH NEB SOLN INH PRN; +DOK1CAP4 PO; -DOK1CAP7 PO; -EPINEPHrine INJ 1 MG/ML 1ML AMP IM PRN; +LOSA100T45 PO; -LOSA100T50 PO; +OMEP40CA4 PO; -OMEP40CA97 PO; -diphenhydrAMINE 50MG/ML VIAL (J1200) IV PRN; -methylPREDNISolone 125MG 2ML VIAL IV PRN
[2020-12-31 14:35] LABS: MAGNESIUM LEVEL 2.2 MG/DL (1.8-2.4); PERCENT SATURATION 20.9 % (19.7-50.0)
== END ==
LOC: M LAB REF 13:27
PROVIDERS: ATTEND Internal Medicine Nephrology
DX: D50.9 Iron deficiency anemia, unspecified (principal); E83.42 Hypomagnesemia

== ENCOUNTER → 2021-08-13 | Outpatient (REF) | payer MEDICARE | LOC: M LAB REF 16:57 | PROVIDERS: ATTEND Internal Medicine Nephrology | DX: D50.9 Iron deficiency anemia, unspecified (principal) ==

== ENCOUNTER 2021-09-04 11:09 | Outpatient (CLI) | payer MEDICARE ==
[~2021-09-04] VITALS: Ht 177.8 cm; Wt 83.0 kg
[~2021-09-04 11:09] MED LIST changes: +ALBUTEROL SULFATE 2.5 MG/0.5 ML INH NEB SOLN INH PRN; +EPINEPHrine INJ 1 MG/ML 1ML AMP IM PRN; +FERRIC CARBOXYMALTOSE INJ 750 MG, VIAL MATE ADAPTER 1 EACH in NS 250 ML IV ONE; +NS 1,000 ML IV SCH; +diphenhydrAMINE 50MG/ML VIAL (J1200) IV PRN; +methylPREDNISolone 125MG 2ML VIAL IV PRN
[2021-09-04 11:32] VITALS: BP 151/70
[2021-09-04 12:45] VITALS: BP 125/60
== END 2021-09-04 12:45 | disposition home or self-care (01) ==
LOC: M INFU 11:09
PROVIDERS: ATTEND Internal Medicine Nephrology
DX: D50.9 Iron deficiency anemia, unspecified (principal)
CPT/HCPCS: 96374; J1439

== ENCOUNTER 2021-09-11 11:48 | Outpatient (CLI) | payer MEDICARE ==
[~2021-09-11] VITALS: Ht 177.8 cm; Wt 83.2 kg
[2021-09-11 11:55] VITALS: BP 133/63
[2021-09-11 14:05] VITALS: BP 121/74
== END 2021-09-11 14:05 | disposition home or self-care (01) ==
LOC: M INFU 11:48
PROVIDERS: ATTEND Internal Medicine Nephrology
DX: D50.9 Iron deficiency anemia, unspecified (principal)
CPT/HCPCS: 96365; 96366; J1439

== ENCOUNTER → 2025-01-09 | Outpatient (CLI) | payer MEDICARE ==
[~2025-01-09] MED LIST changes: +ALBU6.7H6 INH; -ALBUTEROL SULFATE 2.5 MG/0.5 ML INH NEB SOLN INH PRN; +APRE30TA3 PO; -EPINEPHrine INJ 1 MG/ML 1ML AMP IM PRN; -FERRIC CARBOXYMALTOSE INJ 750 MG, VIAL MATE ADAPTER 1 EACH in NS 250 ML IV ONE; +GABA-1172 PO; -GABA-282 PO; +GLIP-320 PO; +GLIP10TA15 PO; -GLIP10TA18 PO; -GLIP10TA6 PO; -HALO0.052 TOP; +HALO0.056 TOP; -LOSA100T45 PO; +LOSA100T46 PO; -NS 1,000 ML IV SCH; -OTEZ1TAB3 PO; -PROV108A INH; -ROSU40TA4 PO; +ROSU40TA81 PO; -diphenhydrAMINE 50MG/ML VIAL (J1200) IV PRN; -methylPREDNISolone 125MG 2ML VIAL IV PRN
== END ==
LOC: M RAD 07:12
PROVIDERS: ATTEND Student in an Organized Health Care Education/Training Program
DX: C61 Malignant neoplasm of prostate (principal)
CPT/HCPCS: 78306; A9503

== ENCOUNTER → 2025-01-18 | Outpatient (CLI) | payer MEDICARE | LOC: M RAD 13:39 | PROVIDERS: ATTEND Student in an Organized Health Care Education/Training Program | DX: C61 Malignant neoplasm of prostate (principal); K44.9 Diaphragmatic hernia without obstruction or gangrene; J43.9 Emphysema, unspecified; N20.0 Calculus of kidney; M47.815 Spondylosis without myelopathy or radiculopathy, thoracolumbar region; K42.9 Umbilical hernia without obstruction or gangrene; M16.0 Bilateral primary osteoarthritis of hip; I70.0 Atherosclerosis of aorta ==

== ENCOUNTER → 2025-01-31 | Outpatient (CLI) | payer MEDICARE ==
[~2025-01-31] MED LIST changes: +BICA50TA4 PO
== END ==
LOC: M ONCR 13:32
PROVIDERS: ATTEND General Practice
DX: C61 Malignant neoplasm of prostate (principal); Z87.891 Personal history of nicotine dependence; Z79.4 Long term (current) use of insulin; Z79.02 Long term (current) use of antithrombotics/antiplatelets; Z79.61 Long term (current) use of immunomodulator; Z79.899 Other long term (current) drug therapy